=== PATIENT | female | born 1955 | race Caucasian/White ===

== ENCOUNTER 2021-11-20 11:02 | Outpatient (REF) | payer MEDICARE, OTHER, SELFPAY ==
[2021-11-20 13:53] LABS: Hematocrit 40.1 % (37.0-47.0); Hemoglobin 13.6 g/dl (12.0-16.0); Mean Corpuscular HGB Conc 33.9 g/dl (31.0-35.0); Mean Corpuscular Hemoglobin 31.7 pg (27.0-33.0); Mean Corpuscular Volume 93.5 fL (80.0-98.0); Platelet Count 165 X10*3/uL (160-400); Red Blood Count 4.29 X10*6/uL (4.20-5.50); Red Cell Distribution Width 12.1 % (11.0-16.0); White Blood Count 3.1 X10*3/uL (4.8-10.8)
[2021-11-20 14:07] LABS: Alanine Aminotransferase 16 U/L (0-31); Albumin Level 4.3 g/dL (3.5-5.0); Alkaline Phosphatase 63 U/L (39-117); Anion Gap 11 (12-20); Aspartate Amino Transferase 25 U/L (5-31); Bilirubin Total 0.7 mg/dL (0.0-1.0); Blood Urea Nitrogen 9 mg/dL (9-16); Calcium 9.4 mg/dL (8.4-10.2); Carbon Dioxide 28 mmol/L (22-29); Chloride 105 mmol/L (96-108); Cholesterol 227 mg/dL; Estimated Glomerular Filt Rate > 60; Glucose Fasting 92 mg/dL (60-99); HDL Cholesterol 55 mg/dL; Iron 127 mcg/dL (30-160); LDL Cholesterol Calculated 153 mg/dl; Percent Iron Saturation 43 % (15-50); Potassium 4.2 mmol/L (3.3-5.1); Sodium 140 mmol/L (135-145); Total Iron Binding Capacity 294 mcg/dL (228-428); Total Protein 6.9 g/dL (6.5-8.0); Triglycerides 98 mg/dL; Unsaturated Iron Binding 167 ug/dL
[2021-11-20 14:29] LABS: TSH reflex Free T4 1.59 uIU/mL (0.32-4.0); Vitamin D 25-OH Total 48.2 ng/mL (>30)
== END 2021-11-20 11:03 | disposition home or self-care (01) ==
LOC: HO.HMGCLDS 11:02
PROVIDERS: PCP Internal Medicine; Visit Provider Internal Medicine
DX: Z00.00 Encounter for general adult medical examination without abnormal findings (principal); E83.119 Hemochromatosis, unspecified; E55.9 Vitamin D deficiency, unspecified
CPT/HCPCS: 36415; 80053; 80061; 82306; 83540; 84443; 85027

== ENCOUNTER → 2021-12-01 11:43 | Outpatient (BNVA) | payer MEDICARE, OTHER, SELFPAY | PROVIDERS: PCP Internal Medicine; Referring Provider Internal Medicine; Visit Provider Nurse Practitioner Family | DX: Z12.11 Encounter for screening for malignant neoplasm of colon (principal); R13.12 Dysphagia, oropharyngeal phase | CPT/HCPCS: 99202 ==

== ENCOUNTER → 2022-03-06 12:44 | Outpatient (BNVA) | payer MEDICARE, OTHER, SELFPAY | PROVIDERS: PCP Internal Medicine; Referring Provider Nurse Practitioner Family; Visit Provider Internal Medicine Cardiovascular Disease | DX: Z01.810 Encounter for preprocedural cardiovascular examination (principal); R00.1 Bradycardia, unspecified | CPT/HCPCS: 93005; 99202 ==

== ENCOUNTER → 2022-04-02 09:24 | Outpatient (REF) | payer MEDICARE, OTHER, SELFPAY ==
--- NOTE | 2022-04-02 09:30 | CA_ITS ---
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 In recovery her heart rate steadily declined down to 81 b/min at test end. Test reviewed with Dr Medina Referred By: Celio Pizarro Overread By: ROSEANNE GALEANO
--- NOTE | 2022-04-02 09:30 | HM_ITS ---
* Total monitoring time 5 days and 20 hours. * Underlying rhythm is sinus. Average rate 61/Min. Range 36 to 132/Min. * About 59% the time, rate less than 60/Min. * Occasional supraventricular ectopy. Minimal burden. Short runs noted. * Rare PVCs. * No significant pauses or AV blocks. * No patient diary. MTDD
--- NOTE | 2022-04-02 09:30 | CA_ITS ---
Transthoracic Echocardiogram Patient (Last, First, Middle): Ameena Booth, Gender: Female Date of : 1955 Age: 66 Procedure Date: 04/02/2022 Procedure Type: Transthoracic Echocardiogram Location: OP Height: 170.18 cm Weight: 73.94 kg BSA: 1.85 m2 Heart Rate: 51 bpm BP: 120 / 84 mmHg Behavior Therapist: PAM Referring MD: Celio Pizarro MD Symptoms: R00.1 - Bradycardia, unspecified Study Quality: Adequate ECG Rhythm: Bradycardia Conclusions: - The left ventricular systolic function is normal. The visually estimated ejection fraction is between 65-70%. - LV peak GLS -19.2%. - There is an interatrial septal aneurysm seen. Interatrial shunt cannot be excluded. - There is mild tricuspid valve regurgitation. - Trace to mild aortic regurgitation. Findings Left Ventricle Normal left ventricular cavity size. There is normal left ventricular wall thickness. The left ventricular systolic function is normal. The visually estimated ejection fraction is between 65-70%. There is no evidence of regional wall motion abnormalities. Diastolic function is normal for age. LV peak GLS -19.2%. Right Ventricle Normal right ventricular cavity size and systolic function. Atria The left atrium is normal in size. There is an interatrial septal aneurysm seen. Interatrial shunt cannot be excluded. Aortic Valve There is a normal trileaflet aortic valve. There is no aortic valve stenosis. Trace to mild aortic regurgitation. Mitral Valve The mitral valve appears normal. There is trace mitral valve regurgitation. There is no mitral valve stenosis. Pulmonic Valve The pulmonic valve is likely normal. There is trace pulmonic valve regurgitation. Tricuspid Valve Normal tricuspid valve structure. There is mild tricuspid valve regurgitation. There is no evidence of pulmonary hypertension. Great Vessels The aortic annulus, sinuses of valsalva, and asc aorta are normal in size. Venous The inferior vena cava is normal in size and collapses greater than 50% with inspiration. Pericardium/Pleural There is no evidence of pericardial effusion. Prior Study Comparison No prior study available for comparison. Measurements 2D Linear Measurements IVSd: 0.68 0.6-0.9/0.6-1.0 cm LVIDd: 4.69 3.9-5.3/4.2-5.9 cm LVIDd Index: 2.54 2.4-3.2/2.2-3.1 cm/m2 LVIDs: 2.90 2.0-3.6 cm LVPWd: 0.85 0.7-1.1 cm LA Diam: 3.40 2.7-3.8/3.0-4.0 cm LAIDs Index: 1.84 1.5-2.3 cm/m2 LV Mass: 142.01 67-162/88-224 g LV Mass Index: 76.76 43-95/49-115 g/m2 LVOT Diam: 2.30 3.0+(-)1.3 cm 2D Systolic Function EF 4C: 70.40 >55% EF 2C: 73.20 >55% EF BiP: 72.10 >55% Mitral Valve MV Pk E: 0.60 MV PK A: 0.51 MV Decel Time: 246.00 E/A: 1.20 E'Lateral: 7.94 E'Medial: 6.53 E/E' Med: 9.10 E/E' Lat: 7.50 PHT: 72.00 MVA PHT: 3.06 Decel [place]: 2.42 Aortic Valve AoV Pk Wong: 1.23 AoV Mn Wong: 0.80 AoV VTI: 0.27 AoV Pk Grad: 6.00 Aov Mn Grad: 3.00 KIRSTEN Cont.VTI: 3.79 AI Pk Wong: 3.83 AI [place]: 1.26 AI Alias Wong: 0.43 ERO - PISA: 6.00 LVOT LVOT Pk Wong: 1.08 LVOT Mn Wong: 0.70 LVOT VTI: 0.25 LVOT Pk Grad: 5.00 LVOT Mn Grad: 2.00 LVOT Diam: 2.30 LVOT Area: 4.15 Diastolic Function MV Pk E: 0.60 MV Pk A: 0.51 E/A: 1.20 E'Medial: 6.53 E/E' Med: 9.10 E' Laterial: 7.94 E/E' Lat: 7.50 Right Ventricle TAPSE (mm): 28.50 TVS' Wong: 13.20 Tricuspid Valve TR Pk Wong: 2.38 TR Pk Grad: 23.00 RA Press: 3.00 RVSP: 26.00 Great Vessels Aorta Sinus of Valsalva: 3.20 2.0-3.5 cm Ao Asc: 2.90 2.1-3.4 cm Pulmonary Veins Pulm Vein S/D 1.20 Pulmonary Valve PV Pk Wong: 0.86 Peak PV Grad: 3.00 Updated in Other Vendor System with Status of Final Larry Coffman MD electronically signed on 04/03/2022 2:16:12 PM with status of Final
== END ==
LOC: HO.CARD 09:24
PROVIDERS: Visit Provider Internal Medicine Cardiovascular Disease
DX: R00.1 Bradycardia, unspecified (principal); R06.02 Shortness of breath
CPT/HCPCS: 93017; 93242; 93306; 93356

== ENCOUNTER 2023-02-14 10:54 | Outpatient (REF) | payer MEDICARE, OTHER, SELFPAY ==
[2023-02-14 11:10] LABS: MANUAL DIFF FLAG NO
[2023-02-14 11:29] LABS: Basophils Percent Auto 0.3 % (0-2); Eosinophils Absolute Auto 0.1 X10*3/uL (0.0-0.4); Eosinophils Percent Auto 1.6 % (0-4); Hematocrit 41.5 % (37.0-47.0); Lymphocytes Absolute Auto 1.2 X10*3/uL (1.2-4.9); Lymphocytes Percent Auto 36.4 % (20-40); Mean Corpuscular HGB Conc 33.7 g/dl (31.0-35.0); Mean Corpuscular Hemoglobin 31.7 pg (27.0-33.0); Mean Corpuscular Volume 93.9 fL (80.0-98.0); Mean Platelet Volume 11.2 fL (9.4-12.3); Monocytes Absolute Auto 0.3 X10*3/uL (0.1-1.2); Monocytes Percent Auto 9.7 % (2-11); Neutrophils Absolute Auto 1.7 x10*3/uL (2.0-8.3); Platelet Count 145 X10*3/uL (160-400); Red Blood Count 4.42 X10*6/uL (4.20-5.50); Red Cell Distribution Width 11.9 % (11.0-16.0); White Blood Count 3.2 X10*3/uL (4.8-10.8)
[2023-02-14 13:06] LABS: Alanine Aminotransferase 17 U/L (0-31); Albumin Level 4.3 g/dL (3.5-5.0); Alkaline Phosphatase 72 U/L (39-117); Anion Gap 10 (12-20); Aspartate Amino Transferase 26 U/L (5-31); Bilirubin Total 0.5 mg/dL (0.0-1.0); Blood Urea Nitrogen 11 mg/dL (9-16); Calcium 9.8 mg/dL (8.4-10.2); Carbon Dioxide 30 mmol/L (22-29); Chloride 105 mmol/L (96-108); Cholesterol 218 mg/dL; Estimated Glomerular Filt Rate > 60; Glucose Fasting 84 mg/dL (60-99); HDL Cholesterol 63 mg/dL; LDL Cholesterol Calculated 135 mg/dl; Potassium 4.4 mmol/L (3.3-5.1); Sodium 141 mmol/L (135-145); Total Protein 7.2 g/dL (6.5-8.0); Triglycerides 101 mg/dL
[2023-02-14 13:12] LABS: TSH reflex Free T4 1.83 uIU/mL (0.32-4.0); Vitamin D 25-OH Total 64.9 ng/mL (>30)
== END 2023-02-14 10:55 | disposition home or self-care (01) ==
LOC: HO.LAB 10:54
PROVIDERS: PCP Internal Medicine; Visit Provider Internal Medicine
DX: Z00.00 Encounter for general adult medical examination without abnormal findings (principal); R00.1 Bradycardia, unspecified; E78.5 Hyperlipidemia, unspecified; E55.9 Vitamin D deficiency, unspecified
CPT/HCPCS: 36415; 80053; 80061; 82306; 84443; 85025

== ENCOUNTER 2023-02-28 11:43 | Outpatient (AMB) | payer MEDICARE, OTHER, SELFPAY ==
[2023-02-28 12:31] VITALS: BP 128/76; PULSE 62; O2SAT 98; BMI 24.6
--- NOTE | 2023-02-28 12:31 | MHC.PC.OV ---
Vital Signs 02/28/23 12:31 Height 5 ft 7 in Weight 157 lb BMI 24.6 BP 128/76 Blood Pressure Location Lt brachial Position Sitting Pulse 62 Pulse Source Pulse Oximeter Pulse Oximetry (%) 98 Oxygen Delivery Method Room Air Intake Visit Reasons: PE Intake Note: Pt is here today for PE. Allergies valacyclovir Allergy (Severe, Verified 02/28/23 12:34) extreme weakness, nausea vomiting passed out cephalexin [From Keflex] Allergy (Mild, Verified 02/28/23 12:34) RASH cetirizine [From Zyrtec] Allergy (Mild, Verified 02/28/23 12:34) ASTHMA egg [Egg] Allergy (Mild, Verified 02/28/23 12:34) mild CONGESTION mold [MOLD EXTRACTS] Allergy (Mild, Verified 02/28/23 12:34) VERTIGO, SEVERE CONGESTION amoxicillin [From AUGMENTIN] Allergy (Unknown, Verified 02/28/23 12:34) HIVES clavulanic acid [From AUGMENTIN] Allergy (Unknown, Verified 02/28/23 12:34) HIVES doxycycline [DOXYCYCLINE] Allergy (Unknown, Verified 02/28/23 12:34) SHORTNESS OF BREATH, HIVES, SWELLING OF HANDS/FEET fluconazole [From DIFLUCAN] Allergy (Unknown, Verified 02/28/23 12:34) SHORTNESS OF BREATH fluticasone [From FLOVENT DISKUS] Allergy (Unknown, Verified 02/28/23 12:34) SHORTNESS OF BREATH ipratropium [From ATROVENT] Allergy (Unknown, Verified 02/28/23 12:34) UNKNOWN levocetirizine [Xyzal] Allergy (Unknown, Verified 02/28/23 12:34) Mild asthma loratadine [From CLARITIN] Allergy (Unknown, Verified 02/28/23 12:34) severe depression moxifloxacin [From AVELOX] Allergy (Unknown, Verified 12/01/21 11:47) HIVES nystatin [NYSTATIN] Allergy (Unknown, Verified 02/28/23 12:34) HIVES Sulfa (Sulfonamide Antibiotics) Allergy (Unknown, Verified 02/28/23 12:34) Hand and ankle swelling sulfamethoxazole [From BACTRIM] Allergy (Unknown, Verified 02/28/23 12:34) Weakness tetracycline Allergy (Unknown, Verified 02/28/23 12:34) Hives trimethoprim [From BACTRIM] Allergy (Unknown, Verified 02/28/23 12:34) Weakness pneumococcal vaccine Allergy (Verified 02/28/23 12:34) weakness vomiting nausea swelling of the arm Crustaceans Allergy (Mild, Uncoded 02/28/23 12:34) + SKIN TEST Environmental Allergy (Mild, Uncoded 02/28/23 12:34) VERTIGO/DIFFICULTY BREATHING Gretchen Allergy (Unknown, Uncoded 02/28/23 12:34) Mild asthma DMSA Allergy (Unknown, Uncoded 02/28/23 12:34) RASH Microgestin Allergy (Unknown, Uncoded 02/28/23 12:34) Rash, asthma ZyrTEC Allergy (Unknown, Uncoded 02/28/23 12:34) Mild asthma Medication List - Last Reconciled 02/28/23 by Zora Shaffer MD acetaminophen 325 mg PO Q4-6H PRN acetylcysteine (bulk) ea miscellaneous .once a day albuterol sulfate 90 mcg/actuation 0 mcg inhalation bisacodyl (Dulcolax (bisacodyl)) 10 mg (2 x 5 mg) PO ONCE 1 day [calcium plus magnesium 100 mg magnesium 500 mg daily] carboxymethylcellulose sodium 0.25% (TheraTears) 1 drp ophthalmic (eye) BID cholecalciferol (vitamin D3) 50 mcg PO DAILY [fish oil 1200 1 daily] magnesium citrate 400 mg PO DAILY PRN melatonin 3 mg PO BEDTIME PRN multivitamin 1 tab PO DAILY [naltrexone 1 cap daily] polyethylene glycol 3350 (Miralax) 238 grams PO ONCE [probiotic PO] pseudoephedrine HCl 30 mg PO Q4-6H PRN Tobacco use date assessed: 02/28/23 Fall risk assessment: No Falls in past year Last assessed Fall Risk: 02/28/23 Dental Screening Dental Screen Date: 02/28/23 Did you have a dental visit in the last 12 months?: Yes Did you have a dental problem in the last 6 months where you did not have access to dental care?: No Was dental information given to patient?: Patient has dentist HPI PE HPI Details Pt presents for PE PFSH Medical History Allergies Annual physical exam Hemochromatosis Hyperlipidemia Normal breast exam Normal pelvic exam Patient is [place] Vitamin D deficiency Surgical History Hx of appendectomy Hx of tonsillectomy Family History Father No problems noted. Mother No problems noted. 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 Patient Tobacco Use Status: Former Tobacco user e-Cigarette/Vaping Use: Never Used Current occupational status: retired Cognitive needs: No Hearing needs: No Vision needs: Yes Questionnaire Thrive Questionnaire Date Thrive assessed: 02/28/23 I am a: Patient What is your living situation today?: I have a steady place to live Within the past 12 months, did the food you bought not last and you didn't have the money to get more?: Never true Within the past 12 months, did you worry whether your food would run out before you got money to buy more?: Never true Do you have trouble paying for medicines?: No Do you have trouble getting transportation to medical appointments?: No Do you have trouble paying your heating and electricity bill?: No Do you have trouble taking care of your child, family member or friend?: No Do you have trouble with day-to-day activities such as bathing, preparing meals, shopping, managing finances, etc.?: No Are you currently unemployed and looking for a job?: No Are you interested in more education?: No Please select the resources that you would like help with: None Currently or been in a relationship where the following occur: no concerns reported AUDIT C Alcohol Use Questionnaire (AUDIT-C) 1. How often do you have a drink containing alcohol?: Never 3. How often do you have six or more drinks on one occasion?: Never Total Score: 0 MARY GRACE-7 AMB Questionnaire MARY GRACE-7 Date MARY GRACE - 7 assessed: 10/03/21 Feeling nervous, anxious, or on edge: 1 = Several days Not being able to stop or control worryin = Several days Worrying too much about different things: 1 = Several days Trouble relaxin = Not at all Being so restless that it is hard to sit still: 0 = Not at all Becoming easily annoyed or irritable: 1 = Several days Feeling afraid as if something awful might happen: 0 = Not at all Total MARY GRACE-7 score (0-4 normal; 5-9 mild; 10-14 moderate; 15-21 severe): 4 Source: Developed by Drs. Librado Reynolds, Maria Esther Victoria, Helio Calhoun and colleagues, with an educational peet from [employer]. Review of Systems Const All systems reviewed & are unremarkable except as noted in HPI and below Reports no additional complaints Eyes Reports no additional complaints ENT Reports no additional complaints Card Reports no additional complaints Resp Reports no additional complaints GI Reports no additional complaints Reports no additional complaints Musc Reports no additional complaints Physical exam (Primary Care) Vital Signs: Last Vital Signs Pulse 62 02/28/23 12:31 BP 128/76 02/28/23 12:31 Pulse Ox 98 02/28/23 12:31 Oxygen Delivery Method Room Air 02/28/23 12:31 BMI result Body Mass Index 24.6 Tobacco/Smoking Status: Tobacco use Status Tobacco use date assessed 02/28/23 02/28/23 12:36 Patient Tobacco Use Status Former Tobacco user 02/28/23 12:36 e-Cigarette/Vaping Use Never Used 02/28/23 12:36 Thrive Assessment: Date of Thrive Assessment Date Thrive assessed 02/28/23 02/28/23 12:37 Currently or been in a relationship where the following occur: no concerns reported Const General: no acute distress HENMT Head: Yes normal to inspection Ears: hearing grossly normal bilaterally Face and sinus: Yes normal facial exam Throat: Yes posterior oropharynx normal Eyes General: appearance normal, both eyes and all related structures Neck Neck: Yes no lymphadenopathy and Yes supple Resp Effort & Inspection: normal respiratory effort Auscultation: clear to auscultation bilaterally Cardio Rhythm: regular rhythm Heart sounds: S1 normal heart sound present and S2 normal heart sound present GI Inspection: Yes normal to inspection Palpation (GI): Soft to palpation Percussion: Yes normal to percussion Auscultation: normal bowel sounds Assessment and Plan Assessment & Plan (1) Postmenopausal: Comment: DEXA by collections assistant 2018, normal, Code(s): Z78.0 - Asymptomatic menopausal state (2) Hyperlipidemia: Code(s): E78.5 - Hyperlipidemia, unspecified Plan: CONTINUE LOW-CHOLESTEROL DIET AND FISH OIL (3) Annual physical exam: Code(s): Z00.00 - Encounter for general adult medical examination without abnormal findings Plan: Well-balanced diet and regular physical activity discussed with the patient, return in 1 year Orders: Orders Comprehensive [place]. Panel Fast 365 Days E78.5 - Hyperlipidemia, unspecified, Z00.00 - Encounter for general adult medical examination without abnormal findings Complete Blood Count Auto Diff 365 Days E78.5 - Hyperlipidemia, unspecified, Z00.00 - Encounter for general adult medical examination without abnormal findings Lipid Panel 365 Days E78.5 - Hyperlipidemia, unspecified, Z00.00 - Encounter for general adult medical examination without abnormal findings Vitamin B12 and Folate 365 Days E78.5 - Hyperlipidemia, unspecified, Z00.00 - Encounter for general adult medical examination without abnormal findings Medications: New metronidazole 1% (Metrogel) 1 appl topical BEDTIME 60 grams 3RF Changed From albuterol sulfate 90 mcg/actuation inhalation To albuterol sulfate 90 mcg/actuation 2 puffs inhalation Q6H 8.5 grams 3RF Coding Level of Care Code Est Pt Prev Care >65y(62466) Diagnoses Postmenopausal Z78.0 Hyperlipidemia E78.5 Annual physical exam Z00.00
== END 2023-02-28 13:04 | disposition home or self-care (01) ==
PROVIDERS: PCP Internal Medicine; Visit Provider Internal Medicine
DX: Z00.00 Encounter for general adult medical examination without abnormal findings (principal); Z78.0 Asymptomatic menopausal state; E78.5 Hyperlipidemia, unspecified
CPT/HCPCS: 99397

== ENCOUNTER 2023-04-19 07:00 | Day surgery (SDC) | payer MEDICARE, OTHER, SELFPAY ==
[2023-04-17 07:51] VITALS: BMI 24.4
--- NOTE | 2023-04-18 09:39 | HO.ANESPROP2 ---
Documented by User: Brenda Torre NP 04/18/23 09:41 HPI - Anesthesia Eval Consult details Narrative: 67yo F for Upper Endoscopy and Colonoscopy *Multiple Med Allergies* PMFSH Active Problems Active Problems: All Active Problems (Updated 02/28/23 @ 13:00 by Zora Shaffer MD) Postmenopausal (Acute) Bradycardia (Acute) Preoperative cardiovascular examination (Acute) Hyperlipidemia (Acute) Vitamin D deficiency (Acute) Annual physical exam (Acute) Normal breast exam (Acute) Normal pelvic exam (Acute) Hemochromatosis (Acute) Patient is Denominational (Acute) Allergies (Acute) Past Medical History Medical History Hyperlipidemia Vitamin D deficiency Annual physical exam Normal breast exam Normal pelvic exam Hemochromatosis Patient is Denominational Allergies Family History Family History Father No problems noted. Mother No problems noted. 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 If so, by whom?: No Are you DNR?: No Advance Directives: No Advance Directives Information Provided: Yes Recently lost weight without trying: No Eating poorly because of decreased appetite: No Nutrition Risks: No Nutritional Risk Patient : No Current occupational status: retired Cognitive needs: No Hearing needs: No Vision needs: Yes Meds Allergies Allergy/AdvReac Type Severity Reaction Status Date / Time valacyclovir Allergy Severe extreme Verified 02/28/23 12:34 weakness, nausea vomiting passed out cephalexin [From Keflex] Allergy Mild RASH Verified 02/28/23 12:34 cetirizine [From Zyrtec] Allergy Mild ASTHMA Verified 02/28/23 12:34 egg [Egg] Allergy Mild mild Verified 02/28/23 12:34 CONGESTION mold [MOLD EXTRACTS] Allergy Mild VERTIGO, Verified 02/28/23 12:34 SEVERE CONGESTION amoxicillin [From AUGMENTIN] Allergy Unknown HIVES Verified 02/28/23 12:34 clavulanic acid Allergy Unknown HIVES Verified 02/28/23 12:34 [From AUGMENTIN] doxycycline [DOXYCYCLINE] Allergy Unknown SHORTNESS Verified 02/28/23 12:34 OF BREATH, HIVES, SWELLING OF HANDS/FEET fluconazole [From DIFLUCAN] Allergy Unknown SHORTNESS Verified 02/28/23 12:34 OF BREATH fluticasone Allergy Unknown SHORTNESS Verified 02/28/23 12:34 [From FLOVENT DISKUS] OF BREATH ipratropium [From ATROVENT] Allergy Unknown UNKNOWN Verified 02/28/23 12:34 levocetirizine [Xyzal] Allergy Unknown Mild asthma Verified 02/28/23 12:34 loratadine [From CLARITIN] Allergy Unknown severe Verified 02/28/23 12:34 depression moxifloxacin [From AVELOX] Allergy Unknown HIVES Verified 12/01/21 11:47 nystatin [NYSTATIN] Allergy Unknown HIVES Verified 02/28/23 12:34 Sulfa (Sulfonamide Allergy Unknown Hand and Verified 02/28/23 12:34 Antibiotics) ankle swelling sulfamethoxazole Allergy Unknown Weakness Verified 02/28/23 12:34 [From BACTRIM] tetracycline Allergy Unknown Hives Verified 02/28/23 12:34 trimethoprim [From BACTRIM] Allergy Unknown Weakness Verified 02/28/23 12:34 pneumococcal vaccine Allergy weakness Verified 02/28/23 12:34 vomiting nausea swelling of the arm Crustaceans Allergy Mild + SKIN TEST Uncoded 02/28/23 12:34 Environmental Allergy Mild VERTIGO/DIFFICULTY Uncoded 02/28/23 12:34 BREATHING Gretchen Allergy Unknown Mild asthma Uncoded 02/28/23 12:34 DMSA Allergy Unknown RASH Uncoded 02/28/23 12:34 Microgestin Allergy Unknown Rash, Uncoded 02/28/23 12:34 asthma ZyrTEC Allergy Unknown Mild asthma Uncoded 02/28/23 12:34 Home Medications Medication Instructions Recorded Confirmed Last Taken Type acetaminophen 325 mg capsule 325 mg PO Q4-6H PRN 10/03/21 02/28/23 Unknown History acetylcysteine (bulk) ea miscellaneous .once a day 10/03/21 02/28/23 Unknown History calcium plus magnesium PO 10/03/21 02/28/23 Unknown History carboxymethylcellulose sodium 0.25 1 drp ophthalmic (eye) BID 10/03/21 02/28/23 Unknown History % eye drops (TheraTears) cholecalciferol (vitamin D3) 50 50 mcg PO DAILY 10/03/21 02/28/23 Unknown History mcg (2,000 unit) capsule fish oil PO 10/03/21 02/28/23 Unknown History magnesium citrate 100 mg capsule 400 mg PO DAILY PRN 10/03/21 02/28/23 Unknown History melatonin 3 mg capsule 3 mg PO BEDTIME PRN 10/03/21 02/28/23 Unknown History multivitamin 1 tab PO DAILY 10/03/21 02/28/23 Unknown History naltrexone PO 10/03/21 02/28/23 Unknown History probiotic PO 10/03/21 02/28/23 Unknown History pseudoephedrine HCl 30 mg tablet 30 mg PO Q4-6H PRN 10/03/21 02/28/23 Unknown History Exam Exam Date and Time: April 18, 2023 0939 Height,Weight and Vital Signs: Height 5 ft 7 in Weight 70.76 kg Pertinent Lab Results Pertinent Lab Results: Laboratory Tests 02/14/23 11:08 WBC 3.2 L Hgb 14.0 Hct 41.5 Plt Count 145 L Sodium 141 Potassium 4.4 Chloride 105 Carbon Dioxide 30 H BUN 11 Creatinine 0.85 Narrative Narrative: ECHO 2021 Conclusions: - The left ventricular systolic function is normal. The visually estimated ejection fraction is between 65-70%. - LV peak GLS -19.2%. - There is an interatrial septal aneurysm seen. Interatrial shunt cannot be excluded. - There is mild tricuspid valve regurgitation. - Trace to mild aortic regurgitation. 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 In recovery her heart rate steadily declined down to 81 b/min at test end. Test reviewed with Dr Medina Assessment and Plan Assessment Anesthesia Assessment: Chart Reviewed Documented by User: Dominique Michel MD 04/19/23 08:16 [facility] Past Medical History Medical History Hyperlipidemia Vitamin D deficiency Annual physical exam Normal breast exam Normal pelvic exam Hemochromatosis Patient is Denominational Allergies Family History Family History Father No problems noted. Mother No problems noted. 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 If so, by whom?: No Are you DNR?: No Advance Directives: No Advance Directives Information Provided: Yes Recently lost weight without trying: No Eating poorly because of decreased appetite: No Nutrition Risks: No Nutritional Risk Patient : No Current occupational status: retired Cognitive needs: No Hearing needs: No Vision needs: Yes Meds Allergies Allergy/AdvReac Type Severity Reaction Status Date / Time valacyclovir Allergy Severe extreme Verified 02/28/23 12:34 weakness, nausea vomiting passed out cephalexin [From Keflex] Allergy Mild RASH Verified 02/28/23 12:34 cetirizine [From Zyrtec] Allergy Mild ASTHMA Verified 02/28/23 12:34 egg [Egg] Allergy Mild mild Verified 02/28/23 12:34 CONGESTION mold [MOLD EXTRACTS] Allergy Mild VERTIGO, Verified 02/28/23 12:34 SEVERE CONGESTION amoxicillin [From AUGMENTIN] Allergy Unknown HIVES Verified 02/28/23 12:34 clavulanic acid Allergy Unknown HIVES Verified 02/28/23 12:34 [From AUGMENTIN] doxycycline [DOXYCYCLINE] Allergy Unknown SHORTNESS Verified 02/28/23 12:34 OF BREATH, HIVES, SWELLING OF HANDS/FEET fluconazole [From DIFLUCAN] Allergy Unknown SHORTNESS Verified 02/28/23 12:34 OF BREATH fluticasone Allergy Unknown SHORTNESS Verified 02/28/23 12:34 [From FLOVENT DISKUS] OF BREATH ipratropium [From ATROVENT] Allergy Unknown UNKNOWN Verified 02/28/23 12:34 levocetirizine [Xyzal] Allergy Unknown Mild asthma Verified 02/28/23 12:34 loratadine [From CLARITIN] Allergy Unknown severe Verified 02/28/23 12:34 depression moxifloxacin [From AVELOX] Allergy Unknown HIVES Verified 12/01/21 11:47 nystatin [NYSTATIN] Allergy Unknown HIVES Verified 02/28/23 12:34 Sulfa (Sulfonamide Allergy Unknown Hand and Verified 02/28/23 12:34 Antibiotics) ankle swelling sulfamethoxazole Allergy Unknown Weakness Verified 02/28/23 12:34 [From BACTRIM] tetracycline Allergy Unknown Hives Verified 02/28/23 12:34 trimethoprim [From BACTRIM] Allergy Unknown Weakness Verified 02/28/23 12:34 pneumococcal vaccine Allergy weakness Verified 02/28/23 12:34 vomiting nausea swelling of the arm Crustaceans Allergy Mild + SKIN TEST Uncoded 02/28/23 12:34 Environmental Allergy Mild VERTIGO/DIFFICULTY Uncoded 02/28/23 12:34 BREATHING Gretchen Allergy Unknown Mild asthma Uncoded 02/28/23 12:34 DMSA Allergy Unknown RASH Uncoded 02/28/23 12:34 Microgestin Allergy Unknown Rash, Uncoded 02/28/23 12:34 asthma ZyrTEC Allergy Unknown Mild asthma Uncoded 02/28/23 12:34 Home Medications Medication Instructions Recorded Confirmed Last Taken Type acetaminophen 325 mg capsule 325 mg PO Q4-6H PRN 10/03/21 02/28/23 Unknown History acetylcysteine (bulk) ea miscellaneous .once a day 10/03/21 02/28/23 Unknown History calcium plus magnesium PO 10/03/21 02/28/23 Unknown History carboxymethylcellulose sodium 0.25 1 drp ophthalmic (eye) BID 10/03/21 02/28/23 Unknown History % eye drops (TheraTears) cholecalciferol (vitamin D3) 50 50 mcg PO DAILY 10/03/21 02/28/23 Unknown History mcg (2,000 unit) capsule fish oil PO 10/03/21 02/28/23 Unknown History magnesium citrate 100 mg capsule 400 mg PO DAILY PRN 10/03/21 02/28/23 Unknown History melatonin 3 mg capsule 3 mg PO BEDTIME PRN 10/03/21 02/28/23 Unknown History multivitamin 1 tab PO DAILY 10/03/21 02/28/23 Unknown History naltrexone PO 10/03/21 02/28/23 Unknown History probiotic PO 10/03/21 02/28/23 Unknown History pseudoephedrine HCl 30 mg tablet 30 mg PO Q4-6H PRN 10/03/21 02/28/23 Unknown History Exam Airway Mallampati Class: II TM Dist: >3cm Neck ROM: Full Loose/Missing/Broken Teeth: No Heart: RRR Lungs: CTA Assessment and Plan Assessment Anesthesia Assessment: Anesthesia Plan Discussed Final Anesthetic Review History of Problems with Anesthesia: No NPO: Yes ASA Class: II Final Preanesthetic Review: Meds/Allgs Chart Reviewed, Consent Obtained/Reviewed and Anes Risks/Benef Reviewed Patient Risk: Low Procedure Risk: Intermediate Anesthetic Plan Anesthetic Plan: MAC: Disposition: Standard PACU
[2023-04-19] MEDS: Lactated Ringers 1,000 ML 100 ML IVCONT (07:38)
--- NOTE | 2023-04-19 08:28 | MHC.SHP ---
Pre-Procedural Eval Section A Date of Service: 04/19/23 The patient is an INPATIENT: No The History & Physical has been completed within 30 days and I have reviewed it.: No Section B Chief Complaint: Dysphagia,screening Relevant Family History (Specify if Yes): No Relevant Social History: Tobacco Use (Formal smoker) Present Medications: see Short Stay Collaborative assessment Medical History: Significant History (Hemochromatosis Hyperlipidemia Normal breast exam Normal pelvic exam Patient is Restorationism Vitamin D deficiency) History of Previous Operations: Relevant previous surgery/procedure and date(s) (Hx of appendectomy Hx of tonsillectomy) Allergies: Allergies Allergy/AdvReac Type Severity Reaction Status Date / Time valacyclovir Allergy Severe extreme Verified 02/28/23 12:34 weakness, nausea vomiting passed out cephalexin [From Keflex] Allergy Mild RASH Verified 02/28/23 12:34 cetirizine [From Zyrtec] Allergy Mild ASTHMA Verified 02/28/23 12:34 egg [Egg] Allergy Mild mild Verified 02/28/23 12:34 CONGESTION mold [MOLD EXTRACTS] Allergy Mild VERTIGO, Verified 02/28/23 12:34 SEVERE CONGESTION amoxicillin [From AUGMENTIN] Allergy Unknown HIVES Verified 02/28/23 12:34 clavulanic acid Allergy Unknown HIVES Verified 02/28/23 12:34 [From AUGMENTIN] doxycycline [DOXYCYCLINE] Allergy Unknown SHORTNESS Verified 02/28/23 12:34 OF BREATH, HIVES, SWELLING OF HANDS/FEET fluconazole [From DIFLUCAN] Allergy Unknown SHORTNESS Verified 02/28/23 12:34 OF BREATH fluticasone Allergy Unknown SHORTNESS Verified 02/28/23 12:34 [From FLOVENT DISKUS] OF BREATH ipratropium [From ATROVENT] Allergy Unknown UNKNOWN Verified 02/28/23 12:34 levocetirizine [Xyzal] Allergy Unknown Mild asthma Verified 02/28/23 12:34 loratadine [From CLARITIN] Allergy Unknown severe Verified 02/28/23 12:34 depression moxifloxacin [From AVELOX] Allergy Unknown HIVES Verified 12/01/21 11:47 nystatin [NYSTATIN] Allergy Unknown HIVES Verified 02/28/23 12:34 Sulfa (Sulfonamide Allergy Unknown Hand and Verified 02/28/23 12:34 Antibiotics) ankle swelling sulfamethoxazole Allergy Unknown Weakness Verified 02/28/23 12:34 [From BACTRIM] tetracycline Allergy Unknown Hives Verified 02/28/23 12:34 trimethoprim [From BACTRIM] Allergy Unknown Weakness Verified 02/28/23 12:34 pneumococcal vaccine Allergy weakness Verified 02/28/23 12:34 vomiting nausea swelling of the arm Crustaceans Allergy Mild + SKIN TEST Uncoded 02/28/23 12:34 Environmental Allergy Mild VERTIGO/DIFFICULTY Uncoded 02/28/23 12:34 BREATHING Gretchen Allergy Unknown Mild asthma Uncoded 02/28/23 12:34 DMSA Allergy Unknown RASH Uncoded 02/28/23 12:34 Microgestin Allergy Unknown Rash, Uncoded 02/28/23 12:34 asthma ZyrTEC Allergy Unknown Mild asthma Uncoded 02/28/23 12:34 Review of Systems Sugical H&P ROS: Negative: Constitution, Cardiovascular, Respiratory and Gastrointestinal Exam Surgical H&P Exam: Normal: Heart, Normal: Lungs, Normal: Extremities and Normal: Abdomen Plan Diagnosis/Plan: Unchanged I have reviewed the history and physical and performed a pertinent physical examination on my patient. No changes have occurred unless specified. Time Spent With Patient Time: Total time managing care of this patient today ____ minutes.
--- NOTE | 2023-04-19 08:44 | W.PM.OPN ---
Operative Note Operative Note Date of Service: 04/19/23 Narrative: FLEXIBLE TRANSORAL UPPER GASTROINTESTINAL ENDOSCOPY WITH BIOPSIES AND COLONOSCOPY TILL CECUM WITH SNARE POLYPECTOMY Pre-op diagnosis: Screening, dysphagia Post-op diagnosis: Gastritis, colon polyp, Diverticulosis, hemorrhoids? Endoscopist:? Fanny Love MD Anesthesia:?MAC UPPER ENDOSCOPY Consent: Indications for the procedure and potential complications of bleeding, perforation, reaction to medications and missed diagnosis were discussed with the patient and informed consent was obtained. Instrument: Olympus GIF H 190 mid size upper endoscope Monitoring: Vital signs and clinical assessment, continuous EKG monitoring, Pulse oximetry, Carbon Dioxide monitoring and blood pressure monitoring were done throughout the procedure. Procedure: The patient was placed in the left lateral decubitis position and pre-procedure medications were administered and a bite block was placed. The endoscope was inserted into the mouth and advanced under direct vision to the third part of duodenum. A careful inspection was made as the upper endoscope was withdrawn including a retroflexed examination of the proximal stomach; Findings and interventions are described below. Findings: Larynx: Normal Esophagus: GE junction at 40 cms. No stricture, ring, esophagitis or Nunez's. Biopsies obtained from proximal esophagus to check for EOE. Stomach: Mild gastric antral erythema. Biopsies were obtained. Grade 2 flap valve on retroflexed examination of the cardia. Duodenum: Normal bulb and descending duodenum Intervention: Biopsies as noted above COLONOSCOPY PROCEDURE NOTE Consent: Indications for the procedure and potential complications of bleeding, perforation, reaction to medications and missed diagnosis were discussed with the patient and informed consent was obtained. Instrument: Olympus PCF H 190 L variable stiffness pediatric colonoscope Monitoring: Vital signs and clinical assessment, intermittent blood pressure monitoring, continuous EKG monitoring, Pulse oximetry and Carbon Dioxide monitoring were done throughout the procedure. Colon withdrawl time was 17 minutes. Procedure: The patient was placed in the left lateral decubitis position and pre-procedure medications were administered. After a digital rectal examination of the ano-rectum, the video colonoscope was inserted into the rectum and advanced through the colon to the cecum. The colonoscope was slowly withdrawn in a retrograde panoramic fashion and the colon mucosa was carefully examined including a retroflexed view of the rectum. Findings and interventions are described below. Procedure Difficulty: colon was long and tortuous and there was some loop formation - no maneuvers were required Findings: Terminal Ileum: Not evaluated Cecum: Normal Ascending Colon: Normal Transverse Colon: A 6-7 mm sessile polyp - removed with a cold snare Descending Colon: moderate diverticular Sigmoid Colon: Moderate diverticulosis Rectum: Normal Ano-rectum: small internal hemorrhoids Colon preparation: Good Impression and Post Procedure Diagnosis: Endoscopy Findings: ESOPHAGUS: Normal - biopsies obtained to check for EOE STOMACH: Antral gastritis Colonoscopy Findings: One small polyp removed Moderate diverticulosis seen in the left colon Small hemorrhoids on retroflexed exam. Plan: Await pathology results Patient has an appointment on 04/29/23 in the [facility] with Judith Velásquez FNP-BC. Consider obtaining a barium swallow if pt has recurrent dysphagia (Pt stated she has not had symptoms of dysphagia recently) Repeat Colonoscopy interval based on path results - in 5 years if polyps are adenomatous and 10 years if polyps are hyperplastic (adult colonoscopy for future colonoscopies). Above findings were reviewed with the patient and colon polyps and diverticulosis handouts were given in the discharge area
[2023-04-19 09:42] VITALS: BP 89/52; PULSE 48; RESP 16; TEMP 36.2; O2SAT 99
[2023-04-19 10:07] VITALS: BP 123/76; PULSE 44; RESP 18; O2SAT 97
[2023-04-19 10:22] VITALS: BP 124/45; PULSE 50; RESP 18; TEMP 36.3; O2SAT 100
== END 2023-04-19 10:50 | disposition home or self-care (01) ==
PROVIDERS: PCP Internal Medicine; Visit Provider Internal Medicine Gastroenterology
PROC: (CPT 45385; principal; 2023-04-19 08:30)
DX: Z12.11 Encounter for screening for malignant neoplasm of colon (principal); D12.3 Benign neoplasm of transverse colon; K57.30 Diverticulosis of large intestine without perforation or abscess without bleeding; K64.8 Other hemorrhoids; R13.12 Dysphagia, oropharyngeal phase; K29.50 Unspecified chronic gastritis without bleeding; E83.119 Hemochromatosis, unspecified; E78.5 Hyperlipidemia, unspecified; Z79.899 Other long term (current) drug therapy; Z88.1 Allergy status to other antibiotic agents; Z88.2 Allergy status to sulfonamides; Z88.8 Allergy status to other drugs, medicaments and biological substances; Z91.09 Other allergy status, other than to drugs and biological substances; Z87.891 Personal history of nicotine dependence
CPT/HCPCS: 45385; 43239; 88305; 88342

== ENCOUNTER → 2023-04-19 07:00 | Outpatient (BNV) | payer MEDICARE, OTHER, SELFPAY | PROVIDERS: PCP Internal Medicine; Visit Provider Internal Medicine Gastroenterology | DX: Z12.11 Encounter for screening for malignant neoplasm of colon (principal); K29.70 Gastritis, unspecified, without bleeding; K57.30 Diverticulosis of large intestine without perforation or abscess without bleeding; K64.8 Other hemorrhoids; D12.3 Benign neoplasm of transverse colon | CPT/HCPCS: 43239; 45385 ==

== ENCOUNTER 2023-04-29 11:26 | Outpatient (AMB) | payer MEDICARE, OTHER, SELFPAY ==
[2023-04-29 11:28] VITALS: BP 144/77; PULSE 59; BMI 24.6
--- NOTE | 2023-04-29 11:28 | A.OFFVIS_ITS ---
Intake Vital Signs 04/29/23 11:28 Height 5 ft 7 in Weight 156 lb 15.506 oz BMI 24.6 BP 144/77 H Blood Pressure Location Lt brachial Position Sitting Pulse 59 Pulse Source Pulse Oximeter Intake Visit Reasons: S/p egd/colon-Ivan Intake Note: Pt presents to the office today for a s/p egd/colo. Pt states she is feeling well and denies any N/V/D. Pt states she has no concerns at this time. Allergies valacyclovir Allergy (Severe, Verified 04/29/23 11:29) extreme weakness, nausea vomiting passed out cephalexin [From Keflex] Allergy (Mild, Verified 04/29/23 11:29) RASH cetirizine [From Zyrtec] Allergy (Mild, Verified 04/29/23 11:29) ASTHMA egg [Egg] Allergy (Mild, Verified 04/29/23 11:29) mild CONGESTION mold [MOLD EXTRACTS] Allergy (Mild, Verified 04/29/23 11:29) VERTIGO, SEVERE CONGESTION amoxicillin [From AUGMENTIN] Allergy (Unknown, Verified 04/29/23 11:29) HIVES clavulanic acid [From AUGMENTIN] Allergy (Unknown, Verified 04/29/23 11:29) HIVES doxycycline [DOXYCYCLINE] Allergy (Unknown, Verified 04/29/23 11:29) SHORTNESS OF BREATH, HIVES, SWELLING OF HANDS/FEET fluconazole [From DIFLUCAN] Allergy (Unknown, Verified 04/29/23 11:29) SHORTNESS OF BREATH fluticasone [From FLOVENT DISKUS] Allergy (Unknown, Verified 04/29/23 11:29) SHORTNESS OF BREATH ipratropium [From ATROVENT] Allergy (Unknown, Verified 04/29/23 11:29) UNKNOWN levocetirizine [Xyzal] Allergy (Unknown, Verified 04/29/23 11:29) Mild asthma loratadine [From CLARITIN] Allergy (Unknown, Verified 04/29/23 11:29) severe depression moxifloxacin [From AVELOX] Allergy (Unknown, Verified 04/29/23 11:29) HIVES nystatin [NYSTATIN] Allergy (Unknown, Verified 04/29/23 11:29) HIVES Sulfa (Sulfonamide Antibiotics) Allergy (Unknown, Verified 04/29/23 11:29) Hand and ankle swelling sulfamethoxazole [From BACTRIM] Allergy (Unknown, Verified 04/29/23 11:29) Weakness tetracycline Allergy (Unknown, Verified 04/29/23 11:29) Hives trimethoprim [From BACTRIM] Allergy (Unknown, Verified 04/29/23 11:29) Weakness pneumococcal vaccine Allergy (Verified 04/29/23 11:29) weakness vomiting nausea swelling of the arm Crustaceans Allergy (Mild, Uncoded 04/29/23 11:29) + SKIN TEST Environmental Allergy (Mild, Uncoded 04/29/23 11:29) VERTIGO/DIFFICULTY BREATHING Gretchen Allergy (Unknown, Uncoded 04/29/23 11:29) Mild asthma DMSA Allergy (Unknown, Uncoded 04/29/23 11:29) RASH Microgestin Allergy (Unknown, Uncoded 04/29/23 11:29) Rash, asthma ZyrTEC Allergy (Unknown, Uncoded 04/29/23 11:29) Mild asthma HPI S/p egd/colon-Ivan HPI Details LAST VISIT Screen for colon cancer Patient denies any GI or respiratory symptoms.? She feels occasional palpitations reports to have symptoms of syncope in the past. 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 Denies any issues with anesthesia in the past.? Denies any history of sleep apnea.? No history infectious diseases in the past or present.? Not on any anticoagulation therapy.? No family or personal history of colon cancer or polyps.? Patient denies melena, hematochezia, unintentional weight loss or ribbon like stools.? Discussed at length the pre- procedure,? prep, diet & medications as well as what to expect prior, during and after the procedure.?? Stressed the importance of good bowel prep. ?Recommended the use of Vaseline or Calmoseptine OTC & baby wipes with bowel movements to promote comfort.? ?Patient verbalizes understanding and agrees to plan of care.? She was given the opportunity to ask questions and all questions answered.? We will see her after the procedure.? Dysphagia Occasional dysphagia when patient drinks water. Denies dysphagia when drink a uses or when she eats food. I will send patient for upper endoscopy. Patient denies dyspepsia or odynophagia Plan Orders Referrals Cardiology Referral Z01.810 Medications New bisacodyl (Dulcolax (bisacodyl)) take 2 tabs at noon the day before your colonoscopy 10 mg (2 x 5 mg) PO ONCE 1 day 2 tabs 0RF Z12.11 polyethylene glycol 3350 (Miralax) As directed by gastroenterology department at [facility] 238 grams PO ONCE 238 grams 0RF Z12.11 UPPER ENDOSCOPY AND COLONOSCOPY Findings: Larynx: Normal Esophagus: GE junction at 40 cms. No stricture, ring, esophagitis or Nunez's. Biopsies obtained from proximal esophagus to check for EOE. Stomach: Mild gastric antral erythema. Biopsies were obtained. Grade 2 flap valve on retroflexed examination of the cardia. Duodenum: Normal bulb and descending duodenum Intervention: Biopsies as noted above Findings: Terminal Ileum: Not evaluated Cecum: Normal Ascending Colon: Normal Transverse Colon: A 6-7 mm sessile polyp - removed with a cold snare Descending Colon: moderate diverticular Sigmoid Colon: Moderate diverticulosis Rectum: Normal Ano-rectum: small internal hemorrhoids Colon preparation: Good Impression and Post Procedure Diagnosis: Endoscopy Findings: ESOPHAGUS: Normal - biopsies obtained to check for EOE STOMACH: Antral gastritis Colonoscopy Findings: One small polyp removed Moderate diverticulosis seen in the left colon Small hemorrhoids on retroflexed exam. Plan: Await pathology results Patient has an appointment on 04/29/23 in the GI Clinic with Judith Velásquez FNP-BC. Consider obtaining a barium swallow if pt has recurrent dysphagia (Pt stated she has not had symptoms of dysphagia recently) Repeat Colonoscopy interval based on path results - in 5 years if polyps are adenomatous and 10 years if polyps are hyperplastic (adult colonoscopy for future colonoscopies). Above findings were reviewed with the patient and colon polyps and diverticulosis handouts were given in the discharge area PATHOLOGY RESULTS Diagnosis A. Stomach, antrum, biopsy: Gastric antral mucosa with reactive gastropathy; negative for Helicobacter pylori, intestinal metaplasia and dysplasia. B. Esophagus, proximal, biopsy: Squamous mucosa within normal limits; negative for inflammation (including intraepithelial eosinophils), fungal organisms, intestinal metaplasia and dysplasia. C. Colon, transverse, polypectomy: Tubular adenoma; negative for high-grade dysplasia TODAY'S VISIT Patient is here today for follow-up and to discuss upper endoscopy and colonoscopy results. Patient denies any ill effects from the prep, anesthesia or procedure itself. Patient reports that she has been doing fairly well. Upper endoscopy and colonoscopy results and biopsy results patient. One small tubular adenoma found in the transverse colon. Patient was found to have a diverticulosis in the left part of her colon. Small internal hemorrhoids. Patient denies melena, hematochezia, unintentional weight loss or ribbon like stools. Patient reports she had few days of blood after having a bowel movement last week. Denies any dyspepsia, dysphagia or odynophagia. Patient reports that she has been feeling fairly well. Good appetite. No nausea or vomiting. No abdominal pain or discomfort. [facility] Medical History (Updated 04/29/23 @ 11:51 by Judith Velásquez [facility]) Diverticulosis Tubular adenoma Hyperlipidemia Vitamin D deficiency Annual physical exam Normal breast exam Normal pelvic exam Hemochromatosis Patient is [employer] Allergies Surgical History Hx of tonsillectomy Hx of appendectomy Family History Father No problems noted. Mother No problems noted. 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 Patient Tobacco Use Status: Former Tobacco user e-Cigarette/Vaping Use: Never Used Current occupational status: retired Cognitive needs: No Hearing needs: No Vision needs: Yes Review of Systems Const Denies weight gain and Denies weight loss ENT Reports no additional complaints, Denies dysphagia and Denies odynophagia Card Reports no additional complaints Resp Reports no additional complaints GI Denies abdominal pain, Denies belching, Denies melena, Denies bloating, Denies change in bowel habits, Denies dysphagia, Denies excessive flatus, Denies dyspepsia, Denies heartburn, Denies diarrhea, Denies loose stools, Denies nausea, Denies odynophagia and Denies vomiting Musc Reports no additional complaints Neuro Reports no additional complaints Psych Reports no additional complaints Endo Reports no additional complaints Physical Exam Vital Signs: BMI result Body Mass Index 24.6 Const General: healthy appearing, no acute distress and well developed Nutritional Appearance: well nourished Orientation/consciousness: patient oriented x3 HEENT Head: Yes normal to inspection, Yes normocephalic and Yes atraumatic Face and sinus: Yes normal facial exam Mouth: Normal oral and palatal mucosa present Throat: Yes posterior oropharynx normal, Yes tonsils normal and Yes uvula midline Eyes General: appearance normal, both eyes and all related structures Neck Neck: Yes normal visual inspection, Yes full ROM and Yes trachea midline Thyroid: Thyroid normal Resp Effort & Inspection: normal respiratory effort, able to speak in complete sentences, no tracheal deviation and symmetric chest movement Auscultation: clear to auscultation bilaterally Cardio Rate: regular rate Heart sounds: S1 normal heart sound present and S2 normal heart sound present GI Inspection: Yes normal to inspection and No distended Palpation (GI): Soft to palpation, not firm, nontender and No hepatosplenomegaly present Auscultation: normal bowel sounds General: Yes no CVA tenderness Back/Spine/Pelvis Back: no CVA tenderness Skin General skin exam: elasticity normal, turgor normal and dry skin Neuro General: patient oriented x3 Psych Appearance: grossly normal Mental Status: mental status grossly normal Affect: normal affect Thought content: Normal thought content present Assessment & Plan Assessment & Plan (1) Tubular adenoma: Code(s): D36.9 - Benign neoplasm, unspecified site (2) Diverticulosis: Code(s): K57.90 - Diverticulosis of intestine, part unspecified, without perforation or abscess without bleeding (3) Screen for colon cancer: Code(s): Z12.11 - Encounter for screening for malignant neoplasm of colon (4) Dysphagia: Code(s): R13.10 - Dysphagia, unspecified Qualifiers: Dysphagia type: unspecified Qualified Code(s): R13.10 - Dysphagia, unspecified (5) Status post colonoscopy: Code(s): Z98.890 - Other specified postprocedural states (6) Internal hemorrhoids without complication: Code(s): K64.8 - Other hemorrhoids Plan Patient reports that she has been doing well since the procedure. No longer has dysphagia patient is taking probiotic daily. Reports that she is moving her bowels without any issues. Colorectal screening in 5 years, sooner if clinically necessary. One tubular adenoma found without high-grade dysplasia or carcinoma. Patient will follow-up in our office on as-needed basis. She is agreeable to this plan and verbalizes understanding of instructions. She was given the opportunity to ask questions all questions answered. Thank you for allowing me to participate in her care Coding Level of Care Code Est Pt Level 3 (60220) Diagnoses Tubular adenoma D36.9 Diverticulosis K57.90 Screen for colon cancer Z12.11 Dysphagia, unspecified type R13.10 Dysphagia type: unspecified Status post colonoscopy Z98.890 Internal hemorrhoids without complication K64.8 Time Spent (min) 25 Comment 15 minutes spent with patient and additional 10 minutes spent reviewing her records
== END 2023-04-29 11:49 | disposition home or self-care (01) ==
PROVIDERS: PCP Internal Medicine; Visit Provider Nurse Practitioner Family
DX: D36.9 Benign neoplasm, unspecified site (principal); K57.90 Diverticulosis of intestine, part unspecified, without perforation or abscess without bleeding; Z12.11 Encounter for screening for malignant neoplasm of colon; R13.10 Dysphagia, unspecified; Z98.890 Other specified postprocedural states; K64.8 Other hemorrhoids
CPT/HCPCS: 99213

== ENCOUNTER → 2023-04-29 11:26 | Outpatient (BNVA) | payer MEDICARE, OTHER, SELFPAY | PROVIDERS: PCP Internal Medicine; Visit Provider Nurse Practitioner Family | DX: Z12.11 Encounter for screening for malignant neoplasm of colon (principal); D36.9 Benign neoplasm, unspecified site; K57.90 Diverticulosis of intestine, part unspecified, without perforation or abscess without bleeding; K64.8 Other hemorrhoids; R13.10 Dysphagia, unspecified; Z98.890 Other specified postprocedural states | CPT/HCPCS: 99212 ==

== ENCOUNTER 2024-03-19 11:03 | Outpatient (REF) | payer MEDICARE, OTHER, SELFPAY ==
[2024-03-19 13:14] LABS: MANUAL DIFF FLAG NO
[2024-03-19 14:00] LABS: Alanine Aminotransferase 17 U/L (0-31); Albumin Level 4.4 g/dL (3.5-5.0); Alkaline Phosphatase 68 U/L (39-117); Anion Gap 12 (12-20); Aspartate Amino Transferase 25 U/L (5-31); Bilirubin Total 0.7 mg/dL (0.0-1.0); Blood Urea Nitrogen 11 mg/dL (9-16); Carbon Dioxide 28 mmol/L (22-29); Chloride 106 mmol/L (96-108); Cholesterol 251 mg/dL (<200); Estimated Glomerular Filt Rate 60; Glucose Fasting 87 mg/dL (60-99); HDL Cholesterol 67 mg/dL (>40); LDL Cholesterol Calculated 168 mg/dL (<100); Potassium 4.2 mmol/L (3.3-5.1); Sodium 142 mmol/L (135-145); Total Protein 7.3 g/dL (6.5-8.0); Triglycerides 82 mg/dL (<150)
[2024-03-19 14:02] LABS: Basophils Percent Auto 0.9 % (0-2); Eosinophils Percent Auto 1.2 % (0-4); Hemoglobin 14.4 g/dl (12.0-16.0); Imm Gran Abs Auto 0.01 X10*3/uL (0.00-0.03); Imm Gran Pct Auto 0.3 % (0.0-0.4); Lymphocytes Absolute Auto 1.5 X10*3/uL (1.2-4.9); Lymphocytes Percent Auto 44.3 % (20-40); Mean Corpuscular HGB Conc 34.3 g/dl (31.0-35.0); Mean Corpuscular Hemoglobin 32.1 pg (27.0-33.0); Mean Corpuscular Volume 93.5 fL (80.0-98.0); Mean Platelet Volume 10.4 fL (9.4-12.3); Monocytes Absolute Auto 0.3 X10*3/uL (0.1-1.2); Monocytes Percent Auto 9.6 % (2-11); Neutrophils Absolute Auto 1.5 x10*3/uL (2.0-8.3); Neutrophils Percent Auto 43.7 % (45-73); Platelet Count 181 X10*3/uL (160-400); Red Blood Count 4.49 X10*6/uL (4.20-5.50); Red Cell Distribution Width 11.9 % (11.0-16.0); White Blood Count 3.4 X10*3/uL (4.8-10.8)
[2024-03-19 14:11] LABS: Folate 15.2 ng/mL (> or = 4.0); Vitamin B12 733 pg/mL (200-900)
== END 2024-03-19 11:04 | disposition home or self-care (01) ==
LOC: HO.10HDL 11:03
PROVIDERS: Visit Provider Internal Medicine
DX: Z00.00 Encounter for general adult medical examination without abnormal findings (principal); E78.5 Hyperlipidemia, unspecified
CPT/HCPCS: 36415; 80053; 80061; 82607; 82746; 85025

== ENCOUNTER 2024-03-25 13:43 | Outpatient (AMB) | payer MEDICARE, OTHER, SELFPAY ==
--- NOTE | 2024-03-25 13:44 | A.OFFPC_ITS ---
Intake Visit Reasons: AWV Allergies valacyclovir Allergy (Severe, Verified 04/29/23 11:29) extreme weakness, nausea vomiting passed out cephalexin [From Keflex] Allergy (Mild, Verified 04/29/23 11:29) RASH cetirizine [From Zyrtec] Allergy (Mild, Verified 04/29/23 11:29) ASTHMA egg [Egg] Allergy (Mild, Verified 04/29/23 11:29) mild CONGESTION mold [MOLD EXTRACTS] Allergy (Mild, Verified 04/29/23 11:29) VERTIGO, SEVERE CONGESTION amoxicillin [From AUGMENTIN] Allergy (Unknown, Verified 04/29/23 11:29) HIVES clavulanic acid [From AUGMENTIN] Allergy (Unknown, Verified 04/29/23 11:29) HIVES doxycycline [DOXYCYCLINE] Allergy (Unknown, Verified 04/29/23 11:29) SHORTNESS OF BREATH, HIVES, SWELLING OF HANDS/FEET fluconazole [From DIFLUCAN] Allergy (Unknown, Verified 04/29/23 11:29) SHORTNESS OF BREATH fluticasone [From FLOVENT DISKUS] Allergy (Unknown, Verified 04/29/23 11:29) SHORTNESS OF BREATH ipratropium [From ATROVENT] Allergy (Unknown, Verified 04/29/23 11:29) UNKNOWN levocetirizine [Xyzal] Allergy (Unknown, Verified 04/29/23 11:29) Mild asthma loratadine [From CLARITIN] Allergy (Unknown, Verified 04/29/23 11:29) severe depression moxifloxacin [From AVELOX] Allergy (Unknown, Verified 04/29/23 11:29) HIVES nystatin [NYSTATIN] Allergy (Unknown, Verified 04/29/23 11:29) HIVES Sulfa (Sulfonamide Antibiotics) Allergy (Unknown, Verified 04/29/23 11:29) Hand and ankle swelling sulfamethoxazole [From BACTRIM] Allergy (Unknown, Verified 04/29/23 11:29) Weakness tetracycline Allergy (Unknown, Verified 04/29/23 11:29) Hives trimethoprim [From BACTRIM] Allergy (Unknown, Verified 04/29/23 11:29) Weakness pneumococcal vaccine Allergy (Verified 04/29/23 11:29) weakness vomiting nausea swelling of the arm Crustaceans Allergy (Mild, Uncoded 04/29/23 11:29) + SKIN TEST Environmental Allergy (Mild, Uncoded 04/29/23 11:29) VERTIGO/DIFFICULTY BREATHING Gretchen Allergy (Unknown, Uncoded 04/29/23 11:29) Mild asthma DMSA Allergy (Unknown, Uncoded 04/29/23 11:29) RASH Microgestin Allergy (Unknown, Uncoded 04/29/23 11:29) Rash, asthma ZyrTEC Allergy (Unknown, Uncoded 04/29/23 11:29) Mild asthma Tobacco use date assessed: 02/28/23 Dental Screening Dental Screen Date: 02/28/23 [facility] Medical History (Updated 04/29/23 @ 11:51 by Judith Velásquez, [facility]-) Diverticulosis Tubular adenoma Hyperlipidemia Vitamin D deficiency Annual physical exam Normal breast exam Normal pelvic exam Hemochromatosis Patient is [employer] Allergies Surgical History Hx of tonsillectomy Hx of appendectomy Family History Father No problems noted. Mother No problems noted. 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 1. Little interest or pleasure in doing things: several days 2. Feeling down, depressed, or hopeless: several days 3. Trouble falling or staying asleep, or sleeping too much: not at all 4. Feeling tired or having little energy: more than half the days 5. Poor appetite or overeating: more than half the days 6. Feeling bad about yourself - or that you are a failure or have let yourself or your family down: several days 7. Trouble concentrating on things, such as reading the newspaper or watching television: several days 8. Moving or speaking so slowly that other people could have noticed. Or the opposite - being so fidgety or restless that you have been moving around a lot more than usual: not at all 9. Thoughts that you would be better off or of hurting yourself in some way: not at all Total score: 8 Source: Developed by Drs. Librado Reynolds, Helio Lugo and colleagues, with an educational pete from [employer]. Thrive Questionnaire Date Thrive assessed: 02/28/23 I am a: Patient What is your living situation today?: I have a steady place to live Within the past 12 months, did the food you bought not last and you didn't have the money to get more?: Never true Within the past 12 months, did you worry whether your food would run out before you got money to buy more?: Never true Do you have trouble paying for medicines?: No Do you have trouble getting transportation to medical appointments?: Yes Do you have trouble paying your heating and electricity bill?: No Do you have trouble taking care of your child, family member or friend?: No Do you have trouble with day-to-day activities such as bathing, preparing meals, shopping, managing finances, etc.?: No Are you interested in more education?: No Please select the resources that you would like help with: None Currently or been in a relationship where the following occur: No concerns reported THRIVE Score: 1 MARY GRACE-7 AMB Questionnaire MARY GRACE-7 Date MARY GRACE - 7 assessed: 10/03/21 Feeling nervous, anxious, or on edge: 1 = Several days Not being able to stop or control worryin = Not at all Worrying too much about different things: 0 = Not at all Trouble relaxin = Not at all Being so restless that it is hard to sit still: 0 = Not at all Becoming easily annoyed or irritable: 0 = Not at all Feeling afraid as if something awful might happen: 0 = Not at all Total MARYG RACE-7 score (0-4 normal; 5-9 mild; 10-14 moderate; 15-21 severe): 1 Source: Developed by Drs. Librado Reynolds, Helio Lugo and colleagues, with an educational pete from [employer]. Physical exam (Primary Care) Tobacco/Smoking Status: Tobacco use Status Tobacco use date assessed 02/28/23 02/28/23 12:36 Patient Tobacco Use Status Former Tobacco user 04/19/23 09:38 e-Cigarette/Vaping Use Never Used 02/28/23 12:36 Thrive Assessment: Date of Thrive Assessment Date Thrive assessed 02/28/23 02/28/23 12:37 Currently or been in a relationship where the following occur: No concerns reported Coding
--- NOTE | 2024-03-25 13:46 | AM.OFFVISMDC ---
Intake Vital Signs 03/25/24 13:54 Height 5 ft 7 in Weight 169 lb BMI 26.5 BP 126/80 Blood Pressure Location Lt brachial Position Sitting Pulse 71 Pulse Source Pulse Oximeter Pulse Oximetry (%) 97 Oxygen Delivery Method Room Air Intake Visit Reasons: AWV Allergies valacyclovir Allergy (Severe, Verified 04/29/23 11:29) extreme weakness, nausea vomiting passed out cephalexin [From Keflex] Allergy (Mild, Verified 04/29/23 11:29) RASH cetirizine [From Zyrtec] Allergy (Mild, Verified 04/29/23 11:29) ASTHMA egg [Egg] Allergy (Mild, Verified 04/29/23 11:29) mild CONGESTION mold [MOLD EXTRACTS] Allergy (Mild, Verified 04/29/23 11:29) VERTIGO, SEVERE CONGESTION amoxicillin [From AUGMENTIN] Allergy (Unknown, Verified 04/29/23 11:29) HIVES clavulanic acid [From AUGMENTIN] Allergy (Unknown, Verified 04/29/23 11:29) HIVES doxycycline [DOXYCYCLINE] Allergy (Unknown, Verified 04/29/23 11:29) SHORTNESS OF BREATH, HIVES, SWELLING OF HANDS/FEET fluconazole [From DIFLUCAN] Allergy (Unknown, Verified 04/29/23 11:29) SHORTNESS OF BREATH fluticasone [From FLOVENT DISKUS] Allergy (Unknown, Verified 04/29/23 11:29) SHORTNESS OF BREATH ipratropium [From ATROVENT] Allergy (Unknown, Verified 04/29/23 11:29) UNKNOWN levocetirizine [Xyzal] Allergy (Unknown, Verified 04/29/23 11:29) Mild asthma loratadine [From CLARITIN] Allergy (Unknown, Verified 04/29/23 11:29) severe depression moxifloxacin [From AVELOX] Allergy (Unknown, Verified 04/29/23 11:29) HIVES nystatin [NYSTATIN] Allergy (Unknown, Verified 04/29/23 11:29) HIVES Sulfa (Sulfonamide Antibiotics) Allergy (Unknown, Verified 04/29/23 11:29) Hand and ankle swelling sulfamethoxazole [From BACTRIM] Allergy (Unknown, Verified 04/29/23 11:29) Weakness tetracycline Allergy (Unknown, Verified 04/29/23 11:29) Hives trimethoprim [From BACTRIM] Allergy (Unknown, Verified 04/29/23 11:29) Weakness pneumococcal vaccine Allergy (Verified 04/29/23 11:29) weakness vomiting nausea swelling of the arm Crustaceans Allergy (Mild, Uncoded 04/29/23 11:29) + SKIN TEST Environmental Allergy (Mild, Uncoded 04/29/23 11:29) VERTIGO/DIFFICULTY BREATHING Gretchen Allergy (Unknown, Uncoded 04/29/23 11:29) Mild asthma DMSA Allergy (Unknown, Uncoded 04/29/23 11:29) RASH Microgestin Allergy (Unknown, Uncoded 04/29/23 11:29) Rash, asthma ZyrTEC Allergy (Unknown, Uncoded 04/29/23 11:29) Mild asthma Medication List - Last Reconciled 03/25/24 by Zora Shaffer MD acetaminophen 325 mg PO Q4-6H PRN acetylcysteine (bulk) ea miscellaneous .once a day albuterol sulfate 90 mcg/actuation 2 puffs inhalation Q6H [calcium plus magnesium 100 mg magnesium 500 mg daily] carboxymethylcellulose sodium 0.25% (TheraTears) 1 drp ophthalmic (eye) BID cholecalciferol (vitamin D3) 50 mcg PO DAILY [fish oil 1200 1 daily] magnesium citrate 400 mg PO DAILY PRN melatonin 3 mg PO BEDTIME PRN metronidazole 1% (Metrogel) 1 appl topical BEDTIME multivitamin 1 tab PO DAILY [naltrexone 1 cap daily] [probiotic PO] pseudoephedrine HCl 30 mg PO Q4-6H PRN HPI AWV HPI Details Initiated the conversation about Advanced Directives. Advanced Directives help? patients prepare for current and future decisions about their medical treatment? and place of care. Discussed with patient that it is a process where a patients? current condition and prognosis are reviewed, their wishes for information? regarding their illness are elicited, and likely medical dilemmas are presented? and options discussed. The form can be amended as needed, reviewed yearly and? make changes as needed IPPE/AWV ? year old presents? for her ? Annual? Wellness Visit, initial visit.? Medical / Social History Reviewed? Past Medical History ?Yes? . ? [place]? of Care / Care Team list updated ?Yes . ? Surgical/Hospitalization? History ?Yes . ? Current Medications? (including OTC and supplements) ?Yes . ? Family History ?Yes? . ? Tobacco? Control form ?Yes . ? AUDIT-C (Alcohol use) form? ?Yes . ? Illicit drug use in Social? History ?Yes . ? Current diagnosis of? depression? ?No ? Appropriate PHQ2/PHQ9? completed ?Yes . ? Data entered by ?Medical? [employer]inding [employer] and reviewed by provider ? Fall Risk ? Fall? History? Have you had any falls with? injury in the past year? ?No . ? Have you had two or more? falls in the past year? ?No . ? Fall Risk Assessment: ?No? falls in the past year . ? HRA filled out by? the patient, reviewed by Provider and scanned. ? IPPE/AWV ? Balance? [place]? ?Yes . ? Tandem? walk ?Yes . ? Walk and? Turn ?Yes . ? Rise from? sit to stand ?Yes . ?Vision? Corrective? lens ?Yes ? Vision? screen ? Up-to-date, has an appointment [] for vision? screening and glaucoma screening ?Hearing? Whisper? test ?pass .? Initiated the conversation about Advanced Directives. Advanced Directives help? patients prepare for current and future decisions about their medical treatment? and place of care. Discussed with patient that it is a process where a patients? current condition and prognosis are reviewed, their wishes for information? regarding their illness are elicited, and likely medical dilemmas are presented? and options discussed. The form can be amended as needed, reviewed yearly and? make changes as needed Written? Plan?Completed. See Patient? Documents. [facility] Medical History Diverticulosis Tubular adenoma Hyperlipidemia Vitamin D deficiency Annual physical exam Normal breast exam Normal pelvic exam Hemochromatosis Patient is [employer] Allergies Surgical History Hx of tonsillectomy Hx of appendectomy Family History Father No problems noted. Mother No problems noted. 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 Patient Tobacco Use Status: Former Tobacco user e-Cigarette/Vaping Use: Never Used Current occupational status: retired Cognitive needs: No Hearing needs: No Vision needs: Yes Questionnaire Medicare Wellness Checkup [age] What gender do you identify with?: female During the past 4 weeks, how much have you been bothered by emotional problems such as feeling anxious, depressed, irritable, sad or downhearted, and blue?: slightly During the past 4 weeks, has your physical & emotional health limited your social activities with family, friends, neighbors, or groups?: slightly During the past 4 weeks, how much bodily pain have you generally had?: moderate pain During the past 4 weeks, was someone available to help you if you needed & wanted help?: yes, as much as I wanted During the past 4 weeks, what was the hardest physical activity you could do for at least 2 minutes?: moderate Can you get to places out of walking distance without help? (For eg., can you travel alone on buses, taxis or drive your car?): Yes Can you go shopping for groceries or clothes without someone's help?: Yes Can you prepare your own meals?: Yes Can you do your housework without help?: Yes Because of any health problems, do you need the help of another person with your personal care needs such as eating, bathing, dressing or getting around the house?: No Can you handle your own money without help?: Yes During the past 4 weeks, how would you rate your health in general?: good During the past 4 weeks how have things been going for you?: pretty well Are you having difficulties driving your car?: no Do you always fasten your seat belt when you are in a car?: yes, usually During past 4 weeks, have you been bothered by the following: never: Falling or dizzy when standing up, Sexual problems?, Teeth or denture problems? and Problems using the telephone?, seldom: Trouble eating well? and sometimes: Tiredness or fatigue? Have you fallen 2 or more times in the past year?: No Are you afraid of falling?: No Are you a smoker?: no During the past 4 weeks, how many drinks of wine, beer, or other alcoholic beverages did you have?: no alcohol at all Do you exercise for about 20 minutes 3 or more times a week?: no, I usually do not exercise this much Have you been given information to help with the following?: no: Hazards in your house that might hurt you? and no: Keeping track of your medications? How often do you have trouble taking medicines the way you have been told to take them?: I always take medicine as prescribed How confident are you that you can control & manage most of your health problems?: somewhat confident What is your race?: White Mini Mental State Exam (MMSE) Orientation What is the (year) (season) (date) (day) (month)?: year, season, date, day and month Where are we (state) (county) (town or city) (hospital) (floor)?: state, county, town or city, hospital/clinic and floor Registration Name of 3 unrelated objects clearly and slowly, then ask patient to repeat all 3 of them. (1st repeat determines score. Make sure they can repeat all three): object 1, object 2 and object 3 Attention & Calculation (CHOOSE ONE) Spell WORLD backwards (DLROW): 5 letters Recall Ask patient to repeat the 3 items from question #3.: object 1, object 2 and object 3 Language Show patient a wristwatch & ask what it is. Repeat for pencil.: watch and pencil Ask the patient to repeat the phrase 'No ifs, ands, or buts' after you.: correct Ask the patient to 'take a piece of paper with their right hand' 'fold paper in half' 'place paper on floor': take paper in right hand, fold paper in half and place paper on floor Print the sentence 'CLOSE YOUR EYES' on a piece. If patient actually closes eyes then score.: followed written direction Give patient a blank piece of paper & ask to write a sentence. Score if it contains a noun & verb.: sentence contains subject and verb Score Score: 29 Activity of Daily Living Bathing - sponge bath, tub bath or shower: receives no assistance (gets in/out by self, if usual bathing means Dressing - getting clothes from closets & drawers, including inner/outer garments & fasteners.: gets clothes & gets completely dressed without help Toileting - going to the 'toilet room' for urine/bowel elimination & cleaning self/arranging clothes: goes to toilet room, cleans self, arranges clothes without help Transfer: moves in & out of bed and chair without help (may use support object) Continence: controls urination/bowel movements completely by self Feeding: feeds self without help Total Score: 0 Information obtained from: patient Using telephone: independent Traveling: independent Shopping: independent Preparing meals: independent Housework: independent Taking medicine: independent Managing money: independent PHQ-9 Over the last 2 weeks, how often have you been bothered by any of the following problems? 1. Little interest or pleasure in doing things: several days 2. Feeling down, depressed, or hopeless: several days 3. Trouble falling or staying asleep, or sleeping too much: not at all 4. Feeling tired or having little energy: more than half the days 5. Poor appetite or overeating: more than half the days 6. Feeling bad about yourself - or that you are a failure or have let yourself or your family down: several days 7. Trouble concentrating on things, such as reading the newspaper or watching television: several days 8. Moving or speaking so slowly that other people could have noticed. Or the opposite - being so fidgety or restless that you have been moving around a lot more than usual: not at all 9. Thoughts that you would be better off or of hurting yourself in some way: not at all Total score: 8 Depression Screening Interpretation: Negative Depression Screening Done: Yes 15608 - PHQ-9 Billing: Yes Source: Developed by Drs. Librado Reynolds, Maria Esther Victoria, Helio Calhoun and colleagues, with an educational pete from [employer]. Review of Systems Const All systems reviewed & are unremarkable except as noted in HPI and below Reports no additional complaints Eyes Reports no additional complaints ENT Reports no additional complaints Card Reports no additional complaints Resp Reports no additional complaints GI Reports no additional complaints Reports no additional complaints Physical Exam Vital Signs: Last Vital Signs Pulse 71 03/25/24 13:54 BP 126/80 03/25/24 13:54 Pulse Ox 97 03/25/24 13:54 Oxygen Delivery Method Room Air 03/25/24 13:54 BMI result Body Mass Index 26.5 Const General: no acute distress Eyes General: appearance normal, both eyes and all related structures Neck Neck: Yes no lymphadenopathy and Yes supple Resp Effort & Inspection: normal respiratory effort Auscultation: clear to auscultation bilaterally Cardio Rhythm: regular rhythm Heart sounds: S1 normal heart sound present and S2 normal heart sound present GI Inspection: Yes normal to inspection Palpation (GI): Soft to palpation Percussion: Yes normal to percussion Auscultation: normal bowel sounds Extrem General: Yes no clubbing, cyanosis or edema Assessment & Plan Assessment & Plan (1) Hx of colonoscopy: Comment: 04/2023 1 polyp TA, recheck in 5 yrs Code(s): Z98.890 - Other specified postprocedural states Plan: Follow-up with GI (2) Hyperlipidemia: Code(s): E78.5 - Hyperlipidemia, unspecified Plan: Low-cholesterol diet increase physical activity discussed with the patient she will have a repeat lipid profile in 6 months and if the LDL is still high statins will be discussed (3) Vitamin D deficiency: Code(s): E55.9 - Vitamin D deficiency, unspecified Plan: Continue vitamin-D. (4) Annual physical exam: Code(s): Z00.00 - Encounter for general adult medical examination without abnormal findings Plan: Well-balanced diet regular physical activity discussed with the patient she is up-to-date with mammogram colonoscopy Orders: Orders Comprehensive [place]. Panel Fast 1 Year E55.9 - Vitamin D deficiency, unspecified, E78.5 - Hyperlipidemia, unspecified, Z00.00 - Encounter for general adult medical examination without abnormal findings Complete Blood Count Auto Diff 1 Year E55.9 - Vitamin D deficiency, unspecified, E78.5 - Hyperlipidemia, unspecified, Z00.00 - Encounter for general adult medical examination without abnormal findings Lipid Panel 1 Year E55.9 - Vitamin D deficiency, unspecified, E78.5 - Hyperlipidemia, unspecified, Z00.00 - Encounter for general adult medical examination without abnormal findings Lipid Panel 6 Months E78.5 - Hyperlipidemia, unspecified, Z00.00 - Encounter for general adult medical examination without abnormal findings TSH reflex Free T4 6 Months E78.5 - Hyperlipidemia, unspecified, Z00.00 - Encounter for general adult medical examination without abnormal findings TSH reflex Free T4 1 Year E55.9 - Vitamin D deficiency, unspecified, E78.5 - Hyperlipidemia, unspecified, Z00.00 - Encounter for general adult medical examination without abnormal findings Quality Reporting (2019) Depression/Bipolar (159/160/161/177) PHQ-9: Total score: 8 Coding Level of Care Code Medicare Subsequent (G0439) Diagnoses Hx of colonoscopy Z98.890 Hyperlipidemia E78.5 Vitamin D deficiency E55.9 Annual physical exam Z00.00 CPT Codes Advance Care Planning - Time spent: 1-15 minutes, not on file ([id number]) Advance Care Planning Advance Care Planning discussion: Exists, not on file Forms completed: Health Care Proxy Time spent: 1-15 minutes, not on file Did not discuss due to Cultural/Spiritual beliefs: Yes
[2024-03-25 13:54] VITALS: BP 126/80; PULSE 71; O2SAT 97; BMI 26.5
== END 2024-03-25 15:54 | disposition home or self-care (01) ==
PROVIDERS: PCP Internal Medicine; Visit Provider Internal Medicine
DX: Z00.00 Encounter for general adult medical examination without abnormal findings (principal); Z98.890 Other specified postprocedural states; E78.5 Hyperlipidemia, unspecified; E55.9 Vitamin D deficiency, unspecified

== ENCOUNTER → 2024-03-25 13:43 | Outpatient (BNVA) | payer MEDICARE, OTHER, SELFPAY | PROVIDERS: PCP Internal Medicine; Visit Provider Internal Medicine ==

== ENCOUNTER 2024-07-24 09:28 | Outpatient (AMB) | payer MEDICARE, OTHER, SELFPAY ==
--- NOTE | 2024-07-24 10:04 | MHC.OFFWIV ---
Intake Vital Signs 07/24/24 10:07 Height 5 ft 7 in Weight 173 lb 2 oz BMI 27.1 BP 142/78 H Blood Pressure Location Lt brachial Position Sitting Respiration 13 Pulse 61 Pulse Source Pulse Oximeter Temp 98.1 F Temp Source Oral Pulse Oximetry (%) 98 Oxygen Delivery Method Room Air Intake Visit Reasons: EST/LEFT BREST INFECTION Intake Note: Patient complaining of left breast pain since yesterday Patient Tobacco Use Status: Former Tobacco user Allergies valacyclovir Allergy (Severe, Verified 07/24/24 10:20) extreme weakness, nausea vomiting passed out cephalexin [From Keflex] Allergy (Mild, Verified 07/24/24 10:20) RASH cetirizine [From Zyrtec] Allergy (Mild, Verified 07/24/24 10:20) ASTHMA egg [Egg] Allergy (Mild, Verified 07/24/24 10:20) mild CONGESTION mold [MOLD EXTRACTS] Allergy (Mild, Verified 07/24/24 10:20) VERTIGO, SEVERE CONGESTION amoxicillin [From AUGMENTIN] Allergy (Unknown, Verified 07/24/24 10:20) HIVES clavulanic acid [From AUGMENTIN] Allergy (Unknown, Verified 07/24/24 10:20) HIVES doxycycline [DOXYCYCLINE] Allergy (Unknown, Verified 07/24/24 10:20) SHORTNESS OF BREATH, HIVES, SWELLING OF HANDS/FEET fluconazole [From DIFLUCAN] Allergy (Unknown, Verified 07/24/24 10:20) SHORTNESS OF BREATH fluticasone [From FLOVENT DISKUS] Allergy (Unknown, Verified 07/24/24 10:20) SHORTNESS OF BREATH ipratropium [From ATROVENT] Allergy (Unknown, Verified 07/24/24 10:20) UNKNOWN levocetirizine [Xyzal] Allergy (Unknown, Verified 07/24/24 10:20) Mild asthma loratadine [From CLARITIN] Allergy (Unknown, Verified 07/24/24 10:20) severe depression moxifloxacin [From AVELOX] Allergy (Unknown, Verified 07/24/24 10:20) HIVES nystatin [NYSTATIN] Allergy (Unknown, Verified 07/24/24 10:20) HIVES Sulfa (Sulfonamide Antibiotics) Allergy (Unknown, Verified 07/24/24 10:20) Hand and ankle swelling sulfamethoxazole [From BACTRIM] Allergy (Unknown, Verified 07/24/24 10:20) Weakness tetracycline Allergy (Unknown, Verified 07/24/24 10:20) Hives trimethoprim [From BACTRIM] Allergy (Unknown, Verified 07/24/24 10:20) Weakness pneumococcal vaccine Allergy (Verified 07/24/24 10:20) weakness vomiting nausea swelling of the arm Crustaceans Allergy (Mild, Uncoded 07/24/24 10:20) + SKIN TEST Environmental Allergy (Mild, Uncoded 07/24/24 10:20) VERTIGO/DIFFICULTY BREATHING Gretchen Allergy (Unknown, Uncoded 07/24/24 10:20) Mild asthma DMSA Allergy (Unknown, Uncoded 07/24/24 10:20) RASH Microgestin Allergy (Unknown, Uncoded 07/24/24 10:20) Rash, asthma ZyrTEC Allergy (Unknown, Uncoded 07/24/24 10:20) Mild asthma Medication List - Last Reconciled 07/24/24 by Evie Cedeño, [place] [employer]GE-[employer] acetaminophen 325 mg PO Q4-6H PRN acetylcysteine (bulk) ea miscellaneous .once a day albuterol sulfate 90 mcg/actuation 2 puffs inhalation Q6H [calcium plus magnesium 100 mg magnesium 500 mg daily] carboxymethylcellulose sodium 0.25% (TheraTears) 1 drp ophthalmic (eye) BID cholecalciferol (vitamin D3) 50 mcg PO DAILY [fish oil 1200 1 daily] magnesium citrate 400 mg PO DAILY PRN melatonin 3 mg PO BEDTIME PRN metronidazole 1% (Metrogel) 1 appl topical BEDTIME multivitamin 1 tab PO DAILY [naltrexone 1 cap daily] [probiotic PO] pseudoephedrine HCl 30 mg PO Q4-6H PRN Do you need a note to return to daycare/school/sports/work: No HPI HPI Comments History of Present Illness Details History of Present Illness The patient is a 69-year-old female presenting with left breast pain. The pain began one day prior to the visit. The patient reports a sore sensation in the area, noting pain specifically on the nipple and observing a lump and erythema. There is an absence of trauma to the breast, fever, or drainage. The patient has no history of active consultations with a breast surgeon but has a family history of breast cancer, specifically in her grandmother who was diagnosed in her late 90s. The patient recalls having cellulitis on the left arm several years ago. The patient noticed the soreness a day or two before this visit but did not attribute it to anything specific. Results mammo 04/2024 reviewed, WNL Plan - A diagnostic mammogram and ultrasound of the left breast will be obtained for further evaluation. - Empirical antibiotic therapy with clindamycin will be prescribed for a possible breast infection or mastitis. This med was chosen given her multiple med allergies/intolerances. - The patient is advised to monitor the breast for changes such as increased redness, streaking, or drainage, and to seek emergency care if these occur & seek addl care if her sx were to worsen. Patient was informed and verbally consented to the use of an ambient scribe for clinic note documentation during this visit. Discussion Notes I discussed with the patient the probable diagnosis of a breast infection or mastitis and emphasized the importance of further imaging to rule out other conditions. I explained the prescription of clindamycin as an empirical treatment, given the patient's allergy considerations. We talked about the need for a diagnostic mammogram and ultrasound, which would be conducted on a stat basis, and I explained how to coordinate this with the [facility]. I informed the patient of the importance of monitoring the condition closely and provided guidance on what symptoms should prompt immediate medical attention. The patient was agreeable to the plan of care discussed. Patient Instructions - Take clindamycin one tablet every eight hours for seven days with food to prevent stomach upset. - Monitor the left breast for any worsening symptoms, such as increased redness or drainage, and naga the area if necessary. - Visit the emergency room if significant changes occur in the breast condition. - [facility] a [facility] and ultrasound as scheduled. - Routine fu with PCP Total time spent caring for the patient today was 30 minutes. This includes time spent before the visit reviewing the chart, time spent during the visit, and time spent after the visit on documentation, reviewing laboratory results, diagnostic imaging, medications, performing a medically necessary evaluation, counseling on diagnoses, care coordination, ordering appropriate tests, ordering appropriate medications, review of tests performed by other providers, reporting test results with the patient, communication with other healthcare providers. [facility] Medical History Diverticulosis Tubular adenoma Hyperlipidemia Vitamin D deficiency Annual physical exam Normal breast exam Normal pelvic exam Hemochromatosis Patient is [place] Allergies Surgical History Hx of tonsillectomy Hx of appendectomy Family History Father No problems noted. Mother No problems noted. 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 erythema mildly warm to touch; palp painful lump under breast; no streaking; no drainage from the nipple Assessment & Plan Assessment & Plan (1) Erythema of breast: Code(s): L53.9 - Erythematous condition, unspecified (2) Breast pain, left: Code(s): N64.4 - Mastodynia Plan . Orders: Orders US breast LT complete Today L53.9 - Erythematous condition, unspecified, N64.4 - Mastodynia MM tomosynthesis diagnostic LT Today L53.9 - Erythematous condition, unspecified, N64.4 - Mastodynia Medications: New clindamycin HCl 300 mg PO Q8H 7 days 21 caps 0RF Coding Level of Care Code Est Pt Level 4 (39379) Diagnoses Erythema of breast L53.9 Breast pain, left N64.4
[2024-07-24 10:07] VITALS: BP 142/78; PULSE 61; RESP 13; TEMP 36.7; O2SAT 98; BMI 27.1
== END 2024-07-24 10:25 | disposition home or self-care (01) ==
LOC: HO.HMCWIW 09:28
PROVIDERS: PCP Internal Medicine; Visit Provider Nurse Practitioner Family
DX: L53.9 Erythematous condition, unspecified (principal); N64.4 Mastodynia

== ENCOUNTER → 2024-07-24 09:28 | Outpatient (BNVA) | payer MEDICARE, OTHER, SELFPAY | PROVIDERS: PCP Internal Medicine; Visit Provider Nurse Practitioner Family | DX: L53.9 Erythematous condition, unspecified (principal); N64.4 Mastodynia | CPT/HCPCS: 99212 ==

== ENCOUNTER 2024-09-23 11:15 | Outpatient (REF) | payer MEDICARE, OTHER, SELFPAY ==
--- NOTE | ~2024-09-23 | MM_ITS ---
EXAMINATION: MM DIAGNOSTIC DIGITAL BREAST TOMOSYNTHESIS, LEFT CLINICAL INFORMATION: Prior left infection/area of pain inferior aspect of the nipple which has resolved after antibiotics. COMPARISON: Mammography: Prior mammograms on PACS. TECHNIQUE: Digital breast tomosynthesis is performed in both the craniocaudal and mediolateral oblique views along with computer-aided detection (CAD). Synthesized 2D images are generated from the tomosynthesis. FINDINGS: There are scattered areas of fibroglandular density (ACR BI-RADS breast composition Category b). There are no significant masses, abnormal calcifications, or other abnormalities. Targeted color Doppler ultrasound scanning in the left retroareolar region and from 4-8:00 demonstrates normal fibroglandular breast tissue. MM/MM tomosynthesis diagnostic LT IMPRESSION: No mammographic or sonographic abnormality. Recommend clinical evaluation and follow-up and yearly screening mammography. ASSESSMENT: BI-RADS BI-RADS 1 - Negative RECOMMENDATION: 1 year F/U Results were provided to the patient at time of visit by the technologist. This patient's information was entered into a reminder system with a target due date for their next mammogram. Electronically signed by: Sharonda Lee DO 09/23/2024 12:45 PM EDT
--- OUTSIDE RECORDS SUMMARY | 2024-09-23 13:43 | XMS_ITS | Clinical Summary ---
Author Organization [facility] Address [address] [place] [address] Care Team Providers Care Transfer Specialist Name Role Phone Ben Simmons MD Primary Care Provider [phone] Allergies Active Allergy Reactions Criticality Noted Date Comments Amoxicillin Urticarial Rash High 11/30/2013 Amoclan Urticarial Rash High 11/30/2013 Moxifloxacin Hcl In Nacl Urticarial Rash High 11/30/2013 Doxycycline Other 11/30/2013 Skin around face and hands crack Food Dizzy/Confused High 11/30/2013 [place],pork Keflex Other High 11/30/2013 Swelling hands and face Lidocaine Dizzy/Confused High 11/30/2013 Loestrin Urticarial Rash,Other High 11/30/2013 SOB Sulfa Antibiotics Urticarial Rash,Other High 014 swelling Medications Valacyclovir HCl (VALTREX) 500 MG TabIndications:A nimal bite,Laceration 1 TABLET DAILY Active MetroNIDAZOLE (METROGEL) 1 % GelIndications:A nimal bite,Laceration daily Acti ve Pseudoephedrine HCl (SUDAFED) 30 MG TabIndications:A nimal bite,Laceration 1 tab daily Ac tive Active Problems No known active problems Social History Tobacco Use Types Packs/Day Years Used Date Smoking Tobacco: Never Alcohol Use Standard Drinks/Week Comments Not Asked 0 (1 standard drink = 0.6 oz pur e alcohol) Comments No Sex and Gender Information Value Date Recorded Sex Assigned at Not on file Legal Sex Female 4:48 PM EDT Gender Identity Not on file Sexual Orientation Not on file Last Filed Vital Signs Vital Sign Reading Time Taken Comments Blood Pressure 138/89 11/30/2013 4:55 PM EDT Pulse 73 11/30/2013 4:55 PM EDT Temperature 36.7 ??C (98 ??F) 11/30/2013 4:55 PM EDT Respiratory Rate - - Oxygen Saturation - - Inhaled Oxygen Concentration - - Weight 62.1 kg (137 lb) 11/30/2013 4:55 PM EDT Height 171.5 cm (5' 7.5 ) 11/30/2013 4:55 PM EDT Body Mass Index 21.14 11/30/2013 4:55 PM EDT Plan of Treatment Health Maintenance Due Date Last Done Comments Hepatitis C Screening 1954 DTaP/Tdap/Td (1 - Tdap) 1972 Mammogram/Breast Imaging 1994 Pneumococcal 50+ years (1 of 1 - PCV) 2004 Zoster (Shingrix) (1 of 2) 2004 Bone Density 2019 COVID-19 Vaccine ( - 2023-2 5 season) 2024 Influenza (#1) 2024 RSV (1 - 1-dose 75+ series) 2029 HPV Vaccine Aged Out No longer eligi ble based on patient's age to complete this topic Hep A Aged Out No longer eligi ble based on patient's age to complete this topic Hep B Aged Out No longer eligi ble based on patient's age to complete this topic Hib Aged Out No longer eligi ble based on patient's age to complete this topic Meningococcal ACWY Aged Out No longer eligible based on patient's age to complete this topic Pap Smear Discontinued Zoster (Zostavax) Discontinued Insurance * Guarantor: [employer] Account Type Relation to Patient Date of Phone Billing Address Personal/Family [address] [place] [id number] [facility] Care Teams Transfer Specialist Relationship Specialty Start Date End Date Lainer, Ben C, MD [facility] [address] [place] [address] PCP - General Internal Medicine 11/30/13
== END 2024-09-23 11:16 | disposition home or self-care (01) ==
LOC: HO.MAMMO 11:15
PROVIDERS: PCP Internal Medicine; Visit Provider Internal Medicine
DX: N64.4 Mastodynia (principal)
CPT/HCPCS: 76642; 77061; 77065

== ENCOUNTER → 2024-09-23 12:00 | Outpatient (BNV) | payer MEDICARE, OTHER, SELFPAY | PROVIDERS: PCP Internal Medicine; Visit Provider Internal Medicine | DX: N64.4 Mastodynia (principal) | CPT/HCPCS: 76642; 77065; G0279 ==

== ENCOUNTER 2025-03-18 08:59 | Outpatient (REF) | payer MEDICARE, OTHER, SELFPAY ==
--- OUTSIDE RECORDS SUMMARY | 2025-03-18 10:11 | XMS_ITS | Clinical Summary ---
Author Organization [facility] Address [address] [place] [address] Care Team Providers Care Lens Grinder Name Role Phone Ben Simmons MD Primary Care Provider [phone] Allergies Active Allergy Reactions Criticality Noted Date Comments Amoxicillin Urticarial Rash High 11/30/2013 Amoclan Urticarial Rash High 11/30/2013 Moxifloxacin Hcl In Nacl Urticarial Rash High 11/30/2013 Doxycycline Other 11/30/2013 Skin around face and hands crack Food Dizzy/Confused High 11/30/2013 [place],pork Keflex Other High 11/30/2013 Swelling hands and [...] 73 11/30/2013 4:55 PM EDT Temperature 36.7 C (98 F) 11/30/2013 4:55 PM EDT Respiratory Rate - [...] COVID-19 Vaccine ( - 2023-2 5 season) 2025 Influenza (#1) 2025 RSV (1 - 1-dose 75+ series) 2029 HPV Vaccine (No Doses Required) Completed Hep A Aged Out No longer eligi [...] Patient Date of Phone Billing Address Personal/Family [address] [place] [id number] [employer] Care Teams Lens Grinder Relationship Specialty Start Date End Date Ben Simmons MD [facility] [address] [place] [address] PCP - General Internal Medicine 11/30/13
[2025-03-18 11:35] LABS: MANUAL DIFF FLAG NO
[2025-03-18 11:39] LABS: Hematocrit 39.0 % (37.0-47.0); Hemoglobin 13.5 g/dl (12.0-16.0); Imm Gran Abs Auto 0.01 X10*3/uL (0.00-0.03); Imm Gran Pct Auto 0.3 % (0.0-0.4); Lymphocytes Absolute Auto 1.4 X10*3/uL (1.2-4.9); Mean Corpuscular HGB Conc 34.6 g/dl (31.0-35.0); Mean Corpuscular Hemoglobin 32.0 pg (27.0-33.0); Mean Corpuscular Volume 92.4 fL (80.0-98.0); NRBC Abs Auto 0.000 X10*3/uL (0.0-0.012); NRBC Pct Auto 0.0 /100WBC (0.0-0.2); Platelet Count 168 X10*3/uL (160-400); Red Blood Count 4.22 X10*6/uL (4.20-5.50); White Blood Count 3.0 X10*3/uL (4.8-10.8)
[2025-03-18 12:11] LABS: Alanine Aminotransferase 17 U/L (0-31); Albumin Level 4.3 g/dL (3.5-5.0); Alkaline Phosphatase 62 U/L (39-117); Anion Gap 11 (12-20); Aspartate Amino Transferase 31 U/L (5-31); Blood Urea Nitrogen 14 mg/dL (9-16); Calcium 9.2 mg/dL (8.4-10.2); Carbon Dioxide 29 mmol/L (22-29); Chloride 105 mmol/L (96-108); Cholesterol 212 mg/dL (<200); Estimated Glomerular Filt Rate 57; HDL Cholesterol 60 mg/dL (>40); Potassium 4.0 mmol/L (3.3-5.1); Sodium 141 mmol/L (135-145); Total Protein 6.6 g/dL (6.5-8.0); Triglycerides 78 mg/dL (<150)
== END 2025-03-18 09:00 | disposition home or self-care (01) ==
LOC: HO.WFDLDS 08:59
PROVIDERS: Visit Provider Internal Medicine
DX: Z00.00 Encounter for general adult medical examination without abnormal findings (principal); E78.5 Hyperlipidemia, unspecified; E55.9 Vitamin D deficiency, unspecified
CPT/HCPCS: 36415; 80053; 80061; 84443; 85025

== ENCOUNTER 2025-03-26 12:08 | Outpatient (AMB) | payer MEDICARE, OTHER, SELFPAY ==
--- NOTE | 2025-03-26 12:25 | AM.OFFVISMDC ---
Intake Vital Signs 03/26/25 12:26 Height 5 ft 7 in Weight 170 lb BMI 26.6 BP 128/78 Blood Pressure Location Lt brachial Position Sitting Respiration 18 Pulse 64 Pulse Source Pulse Oximeter Temp 98.6 F Temp Source Oral Pulse Oximetry (%) 96 Oxygen Delivery Method Room Air Intake Visit Reasons: AWV Intake Note: Pt is here today for AWV. Allergies valacyclovir Allergy (Severe, Verified 03/26/25 12:26) extreme weakness, nausea vomiting passed out cephalexin (From Keflex) Allergy (Mild, Verified 03/26/25 12:26) RASH cetirizine (From Zyrtec) Allergy (Mild, Verified 03/26/25 12:26) ASTHMA egg (Egg) Allergy (Mild, Verified 03/26/25 12:26) mild CONGESTION mold (MOLD EXTRACTS) Allergy (Mild, Verified 03/26/25 12:26) VERTIGO, SEVERE CONGESTION amoxicillin (From AUGMENTIN) Allergy (Unknown, Verified 03/26/25 12:26) HIVES clavulanic acid (From AUGMENTIN) Allergy (Unknown, Verified 03/26/25 12:26) HIVES doxycycline (DOXYCYCLINE) Allergy (Unknown, Verified 03/26/25 12:26) SHORTNESS OF BREATH, HIVES, SWELLING OF HANDS/FEET fluconazole (From DIFLUCAN) Allergy (Unknown, Verified 03/26/25 12:) SHORTNESS OF BREATH fluticasone (From FLOVENT DISKUS) Allergy (Unknown, Verified 03/26/25 12:26) SHORTNESS OF BREATH ipratropium (From ATROVENT) Allergy (Unknown, Verified 03/26/25 12:26) UNKNOWN levocetirizine (Xyzal) Allergy (Unknown, Verified 03/26/25 12:26) Mild asthma loratadine (From CLARITIN) Allergy (Unknown, Verified 03/26/25 12:26) severe depression moxifloxacin (From AVELOX) Allergy (Unknown, Verified 03/26/25 12:26) HIVES nystatin (NYSTATIN) Allergy (Unknown, Verified 03/26/25 12:26) HIVES Sulfa (Sulfonamide Antibiotics) Allergy (Unknown, Verified 03/26/25 12:26) Hand and ankle swelling sulfamethoxazole (From BACTRIM) Allergy (Unknown, Verified 03/26/25 12:26) Weakness tetracycline Allergy (Unknown, Verified 03/26/25 12:26) Hives trimethoprim (From BACTRIM) Allergy (Unknown, Verified 03/26/25 12:26) Weakness pneumococcal vaccine Allergy (Verified 03/26/25 12:26) weakness vomiting nausea swelling of the arm Crustaceans Allergy (Mild, Uncoded 03/26/25 12:26) + SKIN TEST Environmental Allergy (Mild, Uncoded 03/26/25 12:26) VERTIGO/DIFFICULTY BREATHING Gretchen Allergy (Unknown, Uncoded 03/26/25 12:26) Mild asthma DMSA Allergy (Unknown, Uncoded 03/26/25 12:26) RASH Microgestin Allergy (Unknown, Uncoded 03/26/25 12:26) Rash, asthma ZyrTEC Allergy (Unknown, Uncoded 03/26/25 12:26) Mild asthma Medication List - Last Reconciled 03/26/25 by Zora Shaffer MD acetaminophen 325 mg PO Q4-6H PRN acetylcysteine (bulk) ea miscellaneous .once a day albuterol sulfate 90 mcg/actuation 2 puffs inhalation Q6H [calcium plus magnesium 100 mg magnesium 500 mg daily] carboxymethylcellulose sodium 0.25% (TheraTears) 1 drp ophthalmic (eye) BID cholecalciferol (vitamin D3) 50 mcg PO DAILY [fish oil 1200 1 daily] magnesium citrate 400 mg PO DAILY PRN melatonin 3 mg PO BEDTIME PRN metronidazole 1% (Metrogel) 1 appl topical BEDTIME multivitamin 1 tab PO DAILY [naltrexone 1 cap daily] [probiotic PO] pseudoephedrine HCl 30 mg PO Q4-6H PRN PFSH Medical History (Updated 03/26/25 @ 13:02 by Zora Shaffer MD) Postmenopausal Diverticulosis Tubular adenoma Hyperlipidemia Vitamin D deficiency Annual physical exam Normal breast exam Normal pelvic exam Hemochromatosis Patient is Amish Allergies Surgical History (Updated 03/26/25 @ 13:02 by Zora Shaffer MD) Hx of colonoscopy Hx of tonsillectomy Hx of appendectomy Family History Father No problems noted. Mother No problems noted. 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 Patient Tobacco Use Status: Former Tobacco user e-Cigarette/Vaping Use: Never Used Current occupational status: retired Cognitive needs: No Hearing needs: No Vision needs: Yes Questionnaire Medicare Wellness Checkup What [age] 65-69 What gender do you identify with?: female During the past 4 weeks, how much have you been bothered by emotional problems such as feeling anxious, depressed, irritable, sad or downhearted, and blue?: slightly During the past 4 weeks, has your physical & emotional health limited your social activities with family, friends, neighbors, or groups?: slightly During the past 4 weeks, how much bodily pain have you generally had?: moderate pain During the past 4 weeks, was someone available to help you if you needed & wanted help?: yes, as much as I wanted During the past 4 weeks, what was the hardest physical activity you could do for at least 2 minutes?: moderate Can you get to places out of walking distance without help? (For eg., can you travel alone on buses, taxis or drive your car?): Yes Can you go shopping for groceries or clothes without someone's help?: Yes Can you prepare your own meals?: Yes Can you do your housework without help?: Yes Because of any health problems, do you need the help of another person with your personal care needs such as eating, bathing, dressing or getting around the house?: No Can you handle your own money without help?: Yes During the past 4 weeks, how would you rate your health in general?: good During the past 4 weeks how have things been going for you?: pretty well Are you having difficulties driving your car?: no Do you always fasten your seat belt when you are in a car?: yes, usually During past 4 weeks, have you been bothered by the following: never: Falling or dizzy when standing up, Sexual problems?, Teeth or denture problems? and Problems using the telephone?, seldom: Trouble eating well? and sometimes: Tiredness or fatigue? Have you fallen 2 or more times in the past year?: No Are you afraid of falling?: No Are you a smoker?: no During the past 4 weeks, how many drinks of wine, beer, or other alcoholic beverages did you have?: no alcohol at all Do you exercise for about 20 minutes 3 or more times a week?: no, I usually do not exercise this much Have you been given information to help with the following?: no: Hazards in your house that might hurt you? and no: Keeping track of your medications? How often do you have trouble taking medicines the way you have been told to take them?: I always take medicine as prescribed How confident are you that you can control & manage most of your health problems?: somewhat confident What is your race?: White Mini Mental State Exam (MMSE) Orientation What is the (year) (season) (date) (day) (month)?: year, season, date, day and month Where are we (state) (county) (town or city) (hospital) (floor)?: state, county, town or city, hospital/clinic and floor Registration Name of 3 unrelated objects clearly and slowly, then ask patient to repeat all 3 of them. (1st repeat determines score. Make sure they can repeat all three): object 1, object 2 and object 3 Attention & Calculation (CHOOSE ONE) Spell WORLD backwards (DLROW): 5 letters Recall Ask patient to repeat the 3 items from question #3.: object 1, object 2 and object 3 Language Show patient a wristwatch & ask what it is. Repeat for pencil.: watch and pencil Ask the patient to repeat the phrase 'No ifs, ands, or buts' after you.: correct Ask the patient to 'take a piece of paper with their right hand' 'fold paper in half' 'place paper on floor': take paper in right hand, fold paper in half and place paper on floor Print the sentence 'CLOSE YOUR EYES' on a piece. If patient actually closes eyes then score.: followed written direction Give patient a blank piece of paper & ask to write a sentence. Score if it contains a noun & verb.: sentence contains subject and verb Score Score: 29 PHQ-9 Over the last 2 weeks, how often have you been bothered by any of the following problems? 1. Little interest or pleasure in doing things: several days 2. Feeling down, depressed, or hopeless: several days 3. Trouble falling or staying asleep, or sleeping too much: not at all 4. Feeling tired or having little energy: more than half the days 5. Poor appetite or overeating: more than half the days 6. Feeling bad about yourself - or that you are a failure or have let yourself or your family down: several days 7. Trouble concentrating on things, such as reading the newspaper or watching television: several days 8. Moving or speaking so slowly that other people could have noticed. Or the opposite - being so fidgety or restless that you have been moving around a lot more than usual: not at all 9. Thoughts that you would be better off or of hurting yourself in some way: not at all Total score: 8 Depression Screening Interpretation: Negative Depression Screening Done: Yes Source: Developed by Drs. Librado Reynolds, Maria Esther Victoria, Helio Calhoun and colleagues, with an educational pete from [employer]. Review of Systems Const All systems reviewed & are unremarkable except as noted in HPI and below Eyes Reports no additional complaints ENT Reports no additional complaints Card Reports no additional complaints Resp Reports no additional complaints GI Reports no additional complaints Reports no additional complaints Physical Exam Vital Signs: Last Vital Signs Temp 98.6 F 03/26/25 12:26 Pulse 64 03/26/25 12:26 Resp 18 03/26/25 12:26 BP 128/78 03/26/25 12:26 Pulse Ox 96 03/26/25 12:26 Oxygen Delivery Method Room Air 03/26/25 12:26 BMI result Body Mass Index 26.6 Const General: no acute distress HEENT Head: Yes normal to inspection Ears: TM's normal bilaterally Neck Neck: Yes no lymphadenopathy and Yes supple Resp Effort & Inspection: normal respiratory effort Auscultation: clear to auscultation bilaterally Cardio Rhythm: regular rhythm Heart sounds: S1 normal heart sound present and S2 normal heart sound present GI Inspection: Yes normal to inspection Palpation (GI): Soft to palpation Percussion: Yes normal to percussion Auscultation: normal bowel sounds Extrem General: Yes no clubbing, cyanosis or edema Assessment & Plan Assessment & Plan (1) Annual physical exam: Code(s): Z00.00 - Encounter for general adult medical examination without abnormal findings Plan: Well-balanced diet regular physical activity discussed with the patient. She is up-to-date with the mammogram colonoscopy and had normal DEXA last year (2) Hyperlipidemia: Code(s): E78.5 - Hyperlipidemia, unspecified Plan: Continue low-cholesterol diet regular exercise and monitor lipid profile Orders: Orders Comprehensive [place]. Panel Fast 1 Year E78.5 - Hyperlipidemia, unspecified, Z00.00 - Encounter for general adult medical examination without abnormal findings Lipid Panel 1 Year E78.5 - Hyperlipidemia, unspecified, Z00.00 - Encounter for general adult medical examination without abnormal findings Ferritin 1 Year E83.119 - Hemochromatosis, unspecified IRON PROFILE 1 Year E83.119 - Hemochromatosis, unspecified Complete Blood Count Man Dif 1 Year E78.5 - Hyperlipidemia, unspecified, Z00.00 - Encounter for general adult medical examination without abnormal findings Vitamin B12 and Folate 1 Year E78.5 - Hyperlipidemia, unspecified, Z00.00 - Encounter for general adult medical examination without abnormal findings Vitamin D 25-OH Total 1 Year E78.5 - Hyperlipidemia, unspecified, Z00.00 - Encounter for general adult medical examination without abnormal findings TSH reflex Free T4 1 Year E78.5 - Hyperlipidemia, unspecified, Z00.00 - Encounter for general adult medical examination without abnormal findings UA w Microscopic 1 Year E78.5 - Hyperlipidemia, unspecified, Z00.00 - Encounter for general adult medical examination without abnormal findings Quality Reporting (2020) Depression/Bipolar (159/160/161/177) PHQ-9: Total score: 8 Coding Level of Care Code Medicare Subsequent (G0439) Diagnoses Annual physical exam Z00.00 Hyperlipidemia E78.5 CPT Codes Advance Care Planning - Advance Care Planning discussion: On file, no changes ([id number]) Advance Care Planning - Time spent: 1-15 minutes, on File ([id number]) Advance Care Planning Advance Care Planning discussion: On file, no changes Forms completed: Health Care Proxy Time spent: 1-15 minutes, on File
--- OUTSIDE RECORDS SUMMARY | 2025-03-26 12:25 | XMS_ITS | Clinical Summary ---
Author Organization [facility] Address [address] [place] [address] Care Team Providers Care Hospitality Recruiter Name Role Phone Ben Simmons MD Primary Care Provider [phone] Allergies Active Allergy Reactions Criticality Noted Date Comments Amoxicillin Urticarial Rash High 11/30/2013 Amoclan Urticarial Rash High 11/30/2013 Moxifloxacin Hcl In Nacl Urticarial Rash High 11/30/2013 Doxycycline Other 11/30/2013 Skin around face and hands crack Food Dizzy/Confused High 11/30/2013 [place],pork Keflex Other High 11/30/2013 Swelling hands and [...] Patient Date of Phone Billing Address Personal/Family [address] [place] [id number] [employer] Care Teams Hospitality Recruiter Relationship Specialty Start Date End Date Ben Simmons MD [facility] [address] [place] [address] PCP - General Internal Medicine 11/30/13
[2025-03-26 12:26] VITALS: BP 128/78; PULSE 64; RESP 18; TEMP 37; O2SAT 96; BMI 26.6
== END 2025-03-26 13:17 | disposition home or self-care (01) ==
LOC: HO.HMCC 12:09
PROVIDERS: PCP Internal Medicine; Visit Provider Internal Medicine
DX: Z00.00 Encounter for general adult medical examination without abnormal findings (principal); E78.5 Hyperlipidemia, unspecified